=== PATIENT | male | born 1975 | race Caucasian/White ===

== ENCOUNTER 2019-09-16 11:46 | Emergency (ER) | payer MEDICAID, OTHER ==
[2019-09-16] MEDS ORDERED: DEXAMETHASONE 10 MG/ML VIAL PO STA (13:39)
[2019-09-16] MEDS ORDERED: KETOROLAC 60 MG/2 ML VIAL IM STA (13:39)
[2019-09-16] MEDS ORDERED: CHERRY SYRUP 10 ML UDC PO ONE (13:39)
--- NOTE | 2019-09-16 13:42 | ED Physician Documentation ---
PD HPI BACK PAIN - Stated complaint Stated Complaint: LOW BACK PX - Chief complaint Chief Complaint: Back Pain - History obtained from History obtained from: Patient, Family - History of Present Illness Timing - onset: How many weeks ago (3) Timing - duration: Weeks (3) Timing - details: Abrupt onset, Still present Location: Lower, Left Quality: Pain, Spasm, Sharp, Similar to prior episodes Associated symptoms: No: Fever, Weakness, Numbness, Incontinent of urine, Unable to urinate, Hematuria, Incontinent of stool Improves with: Rest Worsened by: Movement, Lifting Contributing factors: Lifting, Twisting Similar symptoms before: Diagnosis (back strain) Recently seen: Not recently seen - Additional information Additional information: Previously well 44-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 He has had issues with his lower back and usually is able to get the symptoms to resolve. Review of Systems Constitutional: denies: Fever Eyes: denies: Decreased vision Respiratory: denies: Cough GI: denies: Vomiting : denies: Dysuria, Frequency PD PAST MEDICAL HISTORY - Past Medical History Past Medical History: Yes Cardiovascular: Hypertension Respiratory: None Neuro: None Endocrine/Autoimmune: None : None HEENT: None Psych: None Musculoskeletal: None Derm: None - Past Surgical History Past Surgical History: Yes HEENT: Tonsil/Adenoidectomy - Present Medications Home Medications: Ambulatory Orders Medication Instructions Recorded Confirmed Amoxicillin/Potassium Clav 1 each PO BID #14 tablet 03/17/15 [Augmentin 875-125 Tablet] Hydrocodone/Acetaminophen 1 - 2 each PO Q6H PRN #14 tablet 09/16/19 [Hydrocodon-Acetaminophen 5-325] - Allergies Allergies/Adverse Reactions: Allergies Allergy/AdvReac Type Severity Reaction Status Date / Time No Known Drug Allergies Allergy Verified 09/16/19 12:22 - Social History Does the pt smoke?: Yes Smoking Status: Current every day smoker Does the pt drink ETOH?: No Does the pt have substance abuse?: No - Immunizations Immunizations are current?: Yes - POLST Patient has POLST: No PD ED PE NORMAL - Vitals Vital signs reviewed: Yes (tachy and hypertensive mild) - General General: Alert and oriented X 3, No acute distress, Well developed/nourished - HEENT HEENT: Atraumatic, PERRL, EOMI - Respiratory Respiratory: No respiratory distress - Back Back: No CVA TTP, No spinal TTP, Other (There is tenderness and firmness to the paraspinous muscles off the lower lumbar spine more on the left side. The pain extends into the sciatic notch on the left side. 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, No motor deficit, No sensory deficit, Normal speech Eye Opening: Spontaneous Motor: Obeys Commands Verbal: Oriented GCS Score: 15 - Psych Psych: Normal mood, Normal affect Results - Vitals Vitals: Vital Signs - 24 hr 09/16/19 12:19 Temperature 36.5 C Heart Rate 117 H Respiratory 22 Rate Blood Pressure 116/83 H O2 Saturation 100 Oxygen O2 Source Room air PD MEDICAL DECISION MAKING - ED course Complexity details: reviewed results, re-evaluated patient, considered differential, d/w patient, d/w family ED course: 44-year-old male with acute sciatica on the left side is administered Dex Methasone 10 mg orally and Toradol 60 mg IM. He does have a primary care doctor for follow-up we will place him on some pain medication muscle relaxant. Departure - Departure Disposition: 01 Home, Self Care Clinical Impression: Sciatica Qualifiers: Laterality: left Qualified Code(s): M54.32 - Sciatica, left side Condition: Stable Instructions: ED Sciatica Follow-Up: Your, doctor [Other] Prescriptions: Hydrocodone/Acetaminophen [Hydrocodon-Acetaminophen 5-325] 1 - 2 each PO Q6H PRN #14 tablet PRN Reason: pain
[2019-09-16 14:02] VITALS: BP 128/74
== END 2019-09-16 14:03 | disposition home or self-care (01) ==
LOC: ED 11:46
DX: M54.42 Lumbago with sciatica, left side (principal); I10 Essential (primary) hypertension; F17.200 Nicotine dependence, unspecified, uncomplicated
CPT/HCPCS: 96372; 99283; 99284; A9270

== ENCOUNTER 2021-07-20 12:30 | Outpatient (CLI) | payer OTHER ==
--- NOTE | 2021-07-20 15:17 | XRAY Report ---
PROCEDURE: Chest 2 View X-Ray INDICATIONS: VIRAL SYNDROME TECHNIQUE: 2 view(s) of the chest. COMPARISON: None. FINDINGS: Surgical changes and devices: None. Lungs and pleura: No pleural effusions or pneumothorax. Increased bronchovascular markings in bilate ral hilar region are seen with mild bronchial wall thickening. No focal infiltrate. There is mild hyp erinflation. Mediastinum: Mediastinal contours are normal. Heart size is normal. Bones and chest wall: No suspicious bony abnormalities. Soft tissues appear unremarkable. IMPRESSION: Finding is suggestive of reactive airway disease such as bronchitis or viral illness. No focal infiltrate, pleural effusion or pneumothorax. Mild hyperinflation. Reviewed by: Pancho Ricci MD on 07/20/2021 3:16 PM PDT Approved by: Pancho iRcci MD on 07/20/2021 3:16 PM PDT Station ID: [id number]
== END 2021-07-20 23:59 | disposition home or self-care (01) ==
LOC: DI.N 12:30
PROVIDERS: ATTEND Nurse Practitioner
DX: B34.9 Viral infection, unspecified (principal); R91.8 Other nonspecific abnormal finding of lung field; U07.1 COVID-19

== ENCOUNTER 2021-07-25 20:55 | Inpatient (IN) | payer OTHER ==
[2021-07-25] MEDS ORDERED: SODIUM CHLORIDE 0.9% 500 ML IV STA (21:25)
[2021-07-25] MEDS ORDERED: ACETAMINOPHEN 325 MG TABLET PO STA (21:32)
--- NOTE | 2021-07-25 21:32 | ED Physician Documentation ---
History of Present Illness - Stated complaint Stated Complaint: C+,CHEST PX,SOA,N/V - Chief complaint Chief Complaint: Resp - History obtained from History obtained from: Patient - Additonal information Additional information: 46-year-old man with history of high blood pressure and obesity, unvaccinated against COVID-19, presents after being seen at walk-in clinic for cough and shortness of breath on Monday, diagnosed with COVID-19 at that time. He has had worsening symptoms since then and is developing worsening nonproductive cough, chest pain worse with cough, substernal, nonradiating, aching, without any hemoptysis or leg swelling. Also with subjective shortness of breath that has been progressively worsening, constant, worse with exertion. +fevers/chills. denies n/v/abd pain diarrhea. Review of Systems Ten Systems: 10 systems reviewed and negative Constitutional: reports: Fever, Chills, Myalgias, Fatigue Cardiac: reports: Chest pain / pressure Respiratory: reports: Dyspnea, Cough PD PAST MEDICAL HISTORY - Past Medical History Cardiovascular: Hypertension Respiratory: None Neuro: None Endocrine/Autoimmune: None : None HEENT: None Psych: None Musculoskeletal: None Derm: None - Past Surgical History Past Surgical History: Yes HEENT: Tonsil/Adenoidectomy - Present Medications Home Medications: Ambulatory Orders Medication Instructions Recorded Confirmed Losartan [Cozaar] 50 mg PO DAILY 07/25/21 07/25/21 - Allergies Allergies/Adverse Reactions: Allergies Allergy/AdvReac Type Severity Reaction Status Date / Time No Known Drug Allergies Allergy Verified 07/25/21 21:32 - Social History Does the pt smoke?: Yes Smoking Status: Current every day smoker Does the pt drink ETOH?: No Does the pt have substance abuse?: No - Immunizations Immunizations are current?: Yes - POLST Patient has POLST: No PD ED PE NORMAL - Vitals Vital signs reviewed: Yes - General General: Alert and oriented X 3, Other (uncomfortable appearing. active dry cough. large body habitus) - HEENT HEENT: Atraumatic, PERRL, EOMI - Neck Neck: Supple, no meningeal sign - Cardiac Cardiac: Other (Borderline tachycardic rate, regular rhythm) - Respiratory Respiratory: Other (Bilateral coarse breath sounds, dependent rhonchi) - Abdomen Abdomen: Non tender, Non distended - Derm Derm: Other (flushed and dry) - Extremities Extremities: No deformity - Neuro Neuro: Alert and oriented X 3 - Psych Psych: Normal mood, Normal affect Results - Vitals Vitals: Vital Signs - 24 hr 07/25/21 07/25/21 21:00 22:37 Temperature 38.6 C H Heart Rate 111 H 105 H Respiratory 12 19 Rate Blood Pressure 137/67 H 136/73 H O2 Saturation 89 L 91 L Oxygen O2 Source Nasal cannula Oxygen Flow Rate 2 - EKG (time done) 2109 Rate: Rate (enter#) (111) Rhythm: Sinus tachycardia [place]: Normal Intervals: Normal UT QRS: Normal Ischemia: Other (no JANINA) - Labs Labs: Laboratory Tests 07/25/21 07/25/21 07/25/21 21:17 21:17 21:17 WBC 4.2 L RBC 4.90 Hgb 15.8 Hct 46.8 MCV 95.5 H MCH 32.2 H MCHC 33.8 RDW 13.3 Plt Count 191 MPV 9.6 Neut # (Auto) 3.2 Lymph # (Auto) 0.8 L Culberson # (Auto) 0.2 Eos # (Auto) 0.0 Baso # (Auto) 0.0 Absolute Nucleated RBC 0.00 Nucleated RBC % 0.0 ESR D-Dimer 814.6 H VBG pH VBG pCO2 VBG pO2 VBG HCO3 VBG Total CO2 VBG O2 Saturation VBG Base Excess Sodium 135 Potassium 4.1 Chloride 99 L Carbon Dioxide 26 Anion Gap 10.0 BUN 15 Creatinine 0.8 Estimated GFR (MDRD) 104 Glucose 126 H Calcium 8.6 Total Bilirubin 0.5 AST 57 H ALT 49 Alkaline Phosphatase 47 Troponin I High Sens C-React Prot High Sens 109.2 Total Protein 7.1 Albumin 3.9 Globulin 3.2 Albumin/Globulin Ratio 1.2 Lipase 30 Nasal Adenovirus (PCR) Nasal B. parapertussis DNA (PCR) Nasal Coronavir 229E PCR Nasal Coronavir HKU1 PCR Nasal Coronavir NL63 PCR Nasal Coronavir OC43 PCR Nasal Enterovir/Rhinovir PCR Nasal Influenza B PCR Nasal Influenza A PCR Nasal Parainfluen 1 PCR Nasal Parainfluen 2 PCR Nasal Parainfluen 3 PCR Nasal Parainfluen 4 PCR Nasal RSV (PCR) Nasal B.pertussis DNA PCR Nasal C.pneumoniae (PCR) Eimle Human Metapneumo PCR Nasal M.pneumoniae (PCR) Nasal SARS-CoV-2 (PCR) 07/25/21 07/25/21 07/25/21 21:17 21:17 21:17 WBC RBC Hgb Hct MCV MCH MCHC RDW Plt Count MPV Neut # (Auto) Lymph # (Auto) Culberson # (Auto) Eos # (Auto) Baso # (Auto) Absolute Nucleated RBC Nucleated RBC % ESR 18 H D-Dimer VBG pH 7.423 H VBG pCO2 37.3 L VBG pO2 40.8 VBG HCO3 23.8 VBG Total CO2 25.0 VBG O2 Saturation 77.9 VBG Base Excess -0.2 Sodium Potassium Chloride Carbon Dioxide Anion Gap BUN Creatinine Estimated GFR (MDRD) Glucose Calcium Total Bilirubin AST ALT Alkaline Phosphatase Troponin I High Sens 6.2 C-React Prot High Sens Total Protein Albumin Globulin Albumin/Globulin Ratio Lipase Nasal Adenovirus (PCR) Nasal B. parapertussis DNA (PCR) Nasal Coronavir 229E PCR Nasal Coronavir HKU1 PCR Nasal Coronavir NL63 PCR Nasal Coronavir OC43 PCR Nasal Enterovir/Rhinovir PCR Nasal Influenza B PCR Nasal Influenza A PCR Nasal Parainfluen 1 PCR Nasal Parainfluen 2 PCR Nasal Parainfluen 3 PCR Nasal Parainfluen 4 PCR Nasal RSV (PCR) Nasal B.pertussis DNA PCR Nasal C.pneumoniae (PCR) Emile Human Metapneumo PCR Nasal M.pneumoniae (PCR) Nasal SARS-CoV-2 (PCR) 07/25/21 21:17 WBC RBC Hgb Hct MCV MCH MCHC RDW Plt Count MPV Neut # (Auto) Lymph # (Auto) Culbers[place] # (Auto) Eos # (Auto) Baso # (Auto) Absolute Nucleated RBC Nucleated RBC % ESR D-Dimer VBG pH VBG pCO2 VBG pO2 VBG HCO3 VBG Total CO2 VBG O2 Saturation VBG Base Excess Sodium Potassium Chloride Carbon Dioxide Anion Gap BUN Creatinine Estimated GFR (MDRD) Glucose Calcium Total Bilirubin AST ALT Alkaline Phosphatase Troponin I High Sens C-React Prot High Sens Total Protein Albumin Globulin Albumin/Globulin Ratio Lipase Nasal Adenovirus (PCR) NOT DETECTED Nasal B. parapertussis DNA (PCR) NOT DETECTED Nasal Coronavir 229E PCR NOT DETECTED Nasal Coronavir HKU1 PCR NOT DETECTED Nasal Coronavir NL63 PCR NOT DETECTED Nasal Coronavir OC43 PCR NOT DETECTED Nasal Enterovir/Rhinovir PCR NOT DETECTED Nasal Influenza B PCR NOT DETECTED Nasal Influenza A PCR NOT DETECTED Nasal Parainfluen 1 PCR NOT DETECTED Nasal Parainfluen 2 PCR NOT DETECTED Nasal Parainfluen 3 PCR NOT DETECTED Nasal Parainfluen 4 PCR NOT DETECTED Nasal RSV (PCR) NOT DETECTED Nasal B.pertussis DNA PCR NOT DETECTED Nasal C.pneumoniae (PCR) NOT DETECTED Emile Human Metapneumo PCR NOT DETECTED Nasal M.pneumoniae (PCR) NOT DETECTED Nasal SARS-CoV-2 (PCR) DETECTED A PD MEDICAL DECISION MAKING - ED course ED course: 46yM presents with moderate to severe COVID-19 symptoms, improving with O2 administration. EKG nonischemic. Will plan to admit pending labs, xr. Patient feeling better on 5L NC o2. d/w Dr. Brannon for admission. patient will receive full therapeutic dose lovenox and 7mg decadron per recent studies. Departure - Departure Disposition: 66 [facility] DC/Xfer Clinical Impression: COVID-19, Hypoxia, Shortness of breath Condition: Stable
[2021-07-25 21:33] LABS: VBG PCO2 37.3 mmHg (41-51); VBG PH 7.423 (7.31-7.41); VBG PO2 40.8 mmHg (25-47)
[2021-07-25 21:34] LABS: BASOPHILS % (AUTO) 0.2 %; HCT - HEMATOCRIT 46.8 % (42.0-52.0); HGB - HEMOGLOBIN 15.8 g/dL (14.0-18.0); LYMPHOCYTES # (AUTO) 0.8 10^3/uL (1.5-3.5); LYMPHOCYTES % (AUTO) 19.4 %; MEAN CORPUSCULAR HEMOGLOBIN 32.2 pg (27.0-31.0); MEAN CORPUSCULAR HGB CONC 33.8 g/dL (32.0-36.0); MEAN CORPUSCULAR VOLUME 95.5 fL (80.0-94.0); MEAN PLATELET VOLUME 9.6 fL (7.4-11.4); MONOCYTES # (AUTO) 0.2 10^3/uL (0.0-1.0); MONOCYTES % (AUTO) 5.2 %; NEUTROPHILS # (AUTO) 3.2 10^3/uL (1.5-6.6); NEUTROPHILS % (AUTO) 74.7 %; PLT - PLATELET COUNT 191 10^3/uL (130-450); RED CELL DISTRIBUTION WIDTH 13.3 % (12.0-15.0); VBG BASE EXCESS -0.2 mmol/L (-2 - +2); VBG HCO3 23.8 mmol/L (23-28); VBG OXYGEN SATURATION 77.9 % (60-80); WHITE BLOOD COUNT 4.2 x10^3/uL (4.8-10.8)
[2021-07-25 21:45] LABS: ALBUMIN 3.9 g/dL (3.2-5.5); ALBUMIN/GLOBULIN RATIO 1.2 (1.0-2.2); BILIRUBIN,TOTAL 0.5 mg/dL (0.2-1.0); CALCIUM 8.6 mg/dL (8.5-10.3); CREATININE 0.8 mg/dL (0.6-1.2); CRP HIGH SENSITIVITY 109.2 mg/L; POTASSIUM 4.1 mmol/L (3.5-5.0); TOTAL PROTEIN 7.1 g/dL (6.7-8.2)
--- NOTE | 2021-07-25 22:19 | XRAY Report ---
PROCEDURE: Chest 1 View X-Ray INDICATIONS: Chest Pain TECHNIQUE: One view of the chest was acquired. COMPARISON: 07/20/2021 FINDINGS: Surgical changes and devices: None. Lungs and pleura: No pleural effusions or pneumothorax. Extensive airspace opacities are seen scatte red throughout bilateral lung dooley more prominent in right upper lobe and bilateral lower lobes. Mediastinum: Mediastinal contours appear normal. Heart size is normal. Bones and chest wall: No suspicious bony lesions. Overlying soft tissues appear unremarkable. IMPRESSION: Extensive bilateral pulmonary infiltrates concerning for pneumonia from COVID-19 infection. No pleura l effusion or pneumothorax. Reviewed by: Pancho Ricci MD on 07/25/2021 10:17 PM PDT Approved by: Pancho Ricci MD on 07/25/2021 10:17 PM PDT Station ID: [id number]
[2021-07-25] MEDS ORDERED: DEXAMETHASONE 10 MG/ML VIAL IVP STA (22:31)
[2021-07-25 22:41] LABS: B. PARAPERTUSSIS- RESP PCR PAN NOT DETECTED; B. PERTUSSIS- RESP PCR PANEL NOT DETECTED; C. PNEUMONIAE- RESP PCR PANEL NOT DETECTED; CORONAVIRUS 229E-RESP PCR NOT DETECTED; CORONAVIRUS HKU1-RESP PCR NOT DETECTED; CORONAVIRUS NL63-RESP PCR NOT DETECTED; CORONAVIRUS OC43-RESP PCR NOT DETECTED; HUMAN METAPNEUMOVIRUS NOT DETECTED; INFLUENZA A- RESP PCR PANEL NOT DETECTED; INFLUENZA B - RESP PCR PANEL NOT DETECTED; M. PNEUMONIAE- RESP PCR PANEL NOT DETECTED; PARAINFLUENZA VIRUS 1 NOT DETECTED; PARAINFLUENZA VIRUS 2 NOT DETECTED; PARAINFLUENZA VIRUS 3 NOT DETECTED; PARAINFLUENZA VIRUS 4 NOT DETECTED; RHINOVIRUS/ENTEROVIRUS NOT DETECTED; RSV- RESP PCR PANEL NOT DETECTED; SARS-CoV-2 -RESP PCR PANEL DETECTED
[2021-07-25] MEDS ORDERED: ENOXAPARIN 100 MG/ML SYRINGE SUBQ STA (23:03)
[2021-07-25] MEDS ORDERED: ONDANSETRON 4 MG/2 ML VIAL IVP PRN (23:05)
[2021-07-25] MEDS ORDERED: ONDANSETRON ODT 4 MG TABLET TL PRN (23:05)
[2021-07-25] MEDS ORDERED: oxyCODONE 5 MG TABLET PO PRN (23:05)
--- NOTE | 2021-07-25 23:12 | HISTORY & PHYSICAL EXAMINATION ---
Chief Complaint - Chief Complaint Chief Complaint: SOB in covid patient History of Present Illness - Admitted From Admitted From:: home - History Obtained From Records Reviewed: [facility] History obtained from: Dr. 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 He has just not gotten around to getting vaccinated. He became ill over a week ago while on the road. He was miserable with cough, fever, body aches. He came home ill and was tested in the walk-in clinic July 20 and was positive for COVID-19. He has been at home quarantining. His and two younger kids (twins) are ill with this as well. has only been sick for 3 days and twins became ill today. He has become increasingly more short of breath, coughing non stop and can't get his breath. Has no appetite. Denies chest pain, pleuritic pain, abd pain, diarrhea, hemoptysis. No phlegm production. Came to the emergency room and his temperature is 38.6. Heart rate is 111. He is 89% on room air. Initially was requiring 2 L to maintain O2 sat and is now up to 5 L to maintain O2 sat at 91%. Blood pressure is stable in the 130s over 70s. He has an active dry cough, appears fatigued, has bilateral coarse breath sounds with dependent rhonchi. Tachycardic regular rate and rhythm. His skin is flushed. Chest x-ray shows bilateral pneumonia compatible with Covid. Random glucose is 126. Troponin is 6.2. He is leukopenic with a white cell count of 4.2. Hemoglobin 15.8. Sed rate is 18. D-dimer is 814. Repeat nasal swab today is SARS Covid positive. He is now admitted for Covid pneumonia with hypoxemia. History - Past Medical History Cardiovascular: reports: Hypertension Respiratory: reports: None Neuro: reports: None Endocrine/Autoimmune: reports: None GI: reports: None : reports: None HEENT: reports: None Psych: reports: None Musculoskeletal: reports: Other (sciatica) Derm: reports: None MRSA Hx?: No - Past Surgical History HEENT: reports: Tonsil/Adenoidectomy - Family & Social History Family History Comment/Other: Mom in her mid 50s of lung cancer. She was not a smoker but worked at a casino for 35 years. Dad a while back, cannot remember his age, and of alcohol poisoning. 3 sisters are healthy except one has high blood pressure. His 4 children are healthy. He has 2 older children no longer live at home, 2 younger children still live at home. Living arrangement: At home Living Situation: With spouse/s.o., With family Social History Notes: He is born in [place]. 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 He has been smoking 1 pack/day since the age of 18. He drinks rarely. No history of recreational substance abuse. - Substance History Abuse: Recurrent use of substance despite neg consequences: Inhalant (Tobacco) - POLST Patient has POLST: No POLST Status: Full Code Meds/Allgy - Home Medications Home Medications: Ambulatory Orders Medication Instructions Recorded Confirmed Losartan [Cozaar] 50 mg PO DAILY 07/25/21 07/25/21 - Allergies Allergies/Adverse Reactions: Allergies Allergy/AdvReac Type Severity Reaction Status Date / Time No Known Drug Allergies Allergy Verified 07/25/21 21:32 Review of Systems - Constitutional Constitutional: reports: Fatigue, Fever, Chills, Malaise, Poor appetite, Diaphoresis - Eyes Eyes: denies: Pain, Irritation, Amaurosis, Blurred vision - Ears, Nose & Throat Ears, Nose & Throat: reports: Nasal obstruction, Nasal congestion. denies: Ear pain, Hearing loss, Hearing aids - Cardiovascular Cariovascular: reports: Exertional dyspnea, Decr. exercise tolerance. denies: Irregular heart rate, Palpitations, Chest pain, Edema, Lightheadedness, Syncope - Respiratory Respiratory: reports: Cough, Wheezing, SOB at rest, SOB with exertion. denies: Sputum production, Snoring, Hemoptysis, Orthopnea, Apnea, Pleuritic pain - Gastrointestinal Gastrointestinal: denies: Abdominal pain, Abdominal distention, Constipation, Diarrhea, Change in bowel habits, Black stools, Bloody stools, Albert blood emesis - Genitourinary Genitourinary: denies: Dysuria, Frequency, Urgency, Hematuria - Musculoskeletal Musculoskeletal: reports: Back pain, Muscle aches, Stiffness. denies: Gout, Joint pain - Neurological Neurological: reports: General weakness, Headache. denies: Focal weakness, Dizziness, Numbness, Memory problems, Pre-existing deficit, Abnormal gait - Psychiatric Psychiatric: denies: Depression, Anxiety, Suicidal, Delusions, Hallucinations - Endocrine Endocrine: denies: Polyuria, Polydypsia, Polyphagia - Hematologic/Lymphatic Hematologic/Lymphatic: denies: Anemia, Bruising, Petechiae, Blood clots Prior Level of Functionality: When he is not ill, he is completely independent with activities of daily living. 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 Does not use any durable medical equipment. Exam - Vital Signs Reviewed Vital Signs: Yes Vital Signs: Vital Signs x48h Temp Pulse Resp BP Pulse Ox 07/25/21 22:37 105 H 19 136/73 H 91 L 07/25/21 21:00 38.6 C H 111 H 12 137/67 H 89 L - Physical Exam General Appearance: positive: Alert, Mild distress, Other (6 foot tall, 159.5 kg, mild tachypnea at rest that increases when he tries to talk to me. During his exam no cough.) Eyes Bilateral: positive: PERRL, EOMI ENT: positive: No signs of dehydration Neck: positive: No JVD, Lymphadenopathy (R), Lymphadenopathy (L). negative: Stiff neck Respiratory: positive: No respiratory distress (Mild tachypnea.), Rales, Rhonchi Cardiovascular: positive: Regular rate & rhythm, No murmur, Tachycardia. negative: Gallop/S4, Friction rub Peripheral Pulses: positive: 1+ Abdomen: positive: Non-tender, No organomegaly, Nml bowel sounds, No distention, Other (Large abdominal pannus in this morbidly obese man) Back: positive: Nml inspection. negative: CVA tenderness (R), CVA tenderness (L) Skin: positive: Color nml, Warm, Dry, Other (The distal part of his hall is red, rough, sandpapery. Nontender. No infection or oozing. He does not know how this 3 x 7 cm area occurred.) Extremities: positive: Non-tender, Full ROM, No pedal edema, Other (Large muscular calves. No venous stasis changes.) Neurologic/Psychiatric: positive: Oriented x3, CN's nml (2-12), Motor nml, Sensation nml Conclusion/Plan - Problem List (1) COVID-19 Conclusion/Plan: With hypoxemia, leukopenia, and viral pneumonia on chest x-ray. Has been ill for close to 2 weeks now. Plan: Inpatient status Decadron 6 mg IV push daily for 10 days Remdesivir for 5 days with first dose tomorrow Daily labs to include CBC, BMP, LDH, D-dimer Lovenox subcu for DVT prophylaxis but will receive full therapeutic dosing Full code (2) Hypoxia Conclusion/Plan: Due to viral pneumonia. Patient is a full code. Currently on nasal cannula and responding with stable O2 sats. (3) Hypertension Conclusion/Plan: With current good control of blood pressure. Will resume losartan in the inpatient setting Qualifiers: Hypertension type: primary hypertension Qualified Code(s): I10 - Essential (primary) hypertension (4) Tobacco abuse Conclusion/Plan: He thinks that this is the last time he is going to smoke. He just does not have a taste for it anymore. I have encouraged him to stay with that idea and not smoke upon leaving the hospital. At this time he declines getting a nicotine patch. - Lab Results Lab results reviewed: Yes Fish Bones: 07/25/21 21:17 07/25/21 21:17 - Diagnostic Imaging Results Diagnostic Imaging Results: positive: Final report reviewed Diagnostic Imaging Results Comments: Today's chest x-ray is compared to July 20, 2021. Extensive airspace opacities are seen scattered throughout bilateral lung dooley more prominent in the right upper lobe and bilateral lower lobes. - EKG Results EKG Interpreted Independently: No Core Measures - Anticipated LOS I expect patient to be DC'd or transferred within 96 hours.: Yes - DVT/VTE - Prophylaxis VTE/DVT Device ordered at admit?: Yes
[2021-07-26] MEDS: guaiFENesin/CODEINE 5 ML UDC PO PRN ×4 (00:58→21:59)
[2021-07-26] MEDS: BENZONATATE 100 MG CAPSULE PO PRN ×3 (00:59→21:58)
[2021-07-26] MEDS: SODIUM CHLORIDE FLUSH 0.9% 10 ML SYRINGE IVP SCH ×4 (02:10→21:06)
[2021-07-26] MEDS: ACETAMINOPHEN 325 MG TABLET PO PRN (04:51)
--- NOTE | 2021-07-26 06:45 | PHARMACY PROGRESS NOTE ---
- Best Possible Medication History Admit Date and Time: 07/25/21 7541 Processed by: Nursing Medication History completed: Yes Patient Interview: Completed Secondary Source(s): Pharmacy records, Insurance records As the person ultimately responsible for medication therapy, providers are able to order a medication from an existing home medication list in [facility] via the "Reconcile Routine" prior to Confirmation of that medication by software support technician. Such practice is discouraged except when the physician, in their clinical judgment, deems that a medical need exists for a medication without regard to previous use.
[2021-07-26] MEDS ORDERED: NON FORMULARY MED (Remdesivir 200 MG) IVP SCH (07:00)
[2021-07-26 07:03] LABS: CALCIUM 8.5 mg/dL (8.5-10.3); CREATININE 0.8 mg/dL (0.6-1.2); POTASSIUM 4.5 mmol/L (3.5-5.0)
--- NOTE | 2021-07-26 07:40 | PROVIDER PROGRESS NOTE ---
Subjective - Prog Note Date Prog Note Date: 07/26/21 - Subjective Subjective: He was transferred to the intensive care unit overnight due to increasing oxygen requirements. He is now requiring high flow nasal cannula. He states that he feels improved compared to yesterday. Does not really feel short of breath at rest but continues to have a cough. He denies any leg pain or leg swelling. Denies a history of DVT. Current Medications - Current Medications Current Medications: Active Medications Acetaminophen (Acetaminophen 325 Mg Tablet) 650 mg PO Q4HR PRN PRN Reason: Pain 1 to 4 Last Admin: 07/26/21 04:51 Dose: 650 mg Documented by: Benzonatate (Benzonatate 100 Mg Capsule) 100 mg PO TID PRN PRN Reason: Cough Last Admin: 07/26/21 00:59 Dose: 100 mg Documented by: Chlorhexidine Gluconate (Chlorhexidine Gluconate 15 Ml Udc) 15 ml PO BID [facility] Dexamethasone (Dexamethasone 4 Mg/Ml Vial) 6 mg IVP DAILY [facility] Enoxaparin Sodium (Enoxaparin 150 Mg/Ml Syringe) 150 mg SUBQ BID [facility] Guaifenesin/Codeine Phosphate (Guaifenesin/Codeine 5 Ml Udc) 5 ml PO Q6HR PRN PRN Reason: Cough Last Admin: 07/26/21 00:58 Dose: 5 ml Documented by: Remdesivir 200 mg/ Sodium (Chloride) 250 mls @ 250 mls/hr IV ONCE ONE Stop: 07/26/21 09:59 Remdesivir 100 mg/ Sodium (Chloride) 100 mls @ 200 mls/hr IV DAILY [facility] Stop: 07/30/21 09:29 Ondansetron HCl (Ondansetron Odt 4 Mg Tablet) 4 mg TL Q6HR PRN PRN Reason: Nausea / Vomiting Ondansetron HCl (Ondansetron 4 Mg/2 Ml Vial) 4 mg IVP Q6HR PRN PRN Reason: Nausea / Vomiting Oxycodone HCl (Oxycodone 5 Mg Tablet) 5 mg PO Q4HR PRN PRN Reason: Pain 5 to 7 Sodium Chloride (Sodium Chloride Flush 0.9% 10 Ml Syringe) 10 ml IVP PRN PRN PRN Reason: NEEDED PER PROVIDER ORDERS Sodium Chloride (Sodium Chloride Flush 0.9% 10 Ml Syringe) 10 ml IVP 0100,0900,1700 [facility] Last Admin: 07/26/21 02:10 Dose: Not Given Documented by: Losartan [Cozaar] 50 mg PO DAILY 07/25/21 Objective - Vital Signs/Intake & Output Reviewed Vital Signs: Yes Vital Signs: Vital Signs Temp Pulse Resp BP Pulse Ox 07/26/21 07:00 100 30 H 124/83 H 92 07/26/21 06:30 37.6 C 88 L 07/26/21 05:55 92 07/26/21 05:05 90 L 07/26/21 04:54 24 90 L 07/26/21 04:46 38.5 C H 07/26/21 04:20 105 H 24 92 07/26/21 04:15 5 L Intake & Output: Intake & Output 07/23/21 07/24/21 07/25/21 07/26/21 23:59 23:59 23:59 23:59 Intake Total 500 400 Balance 500 400 - Objective General Appearance: positive: No acute distress, Alert Eyes Bilateral: positive: Normal inspection, Conjunctivae nml ENT: positive: ENT inspection nml Neck: positive: Nml inspection Respiratory: positive: No respiratory distress, Rhonchi Cardiovascular: positive: Regular rate & rhythm, No murmur, Tachycardia. negative: Bradycardia, Systolic murmur Abdomen: positive: Non-tender, No distention. negative: Tenderness Extremities: positive: No pedal edema. negative: Pedal edema, Calf tenderness, Trini's sign/cords Neurologic/Psychiatric: positive: Motor nml. negative: Disoriented to person, Disoriented to place, Disoriented to time - Lab Results Fish Bones: 07/26/21 06:45 07/26/21 06:45 Other Labs: Lab Results x24hrs 07/26/21 07/26/21 07/25/21 Range/Units 06:45 06:45 21:17 WBC (4.8-10.8) x10^3/uL RBC (4.70-6.10) 10^6/uL Hgb (14.0-18.0) g/dL Hct (42.0-52.0) % MCV (80.0-94.0) fL MCH (27.0-31.0) pg MCHC (32.0-36.0) g/dL RDW (12.0-15.0) % Plt Count (130-450) 10^3/uL MPV (7.4-11.4) fL Neut # (Auto) (1.5-6.6) 10^3/uL Lymph # (Auto) (1.5-3.5) 10^3/uL [place] # (Auto) (0.0-1.0) 10^3/uL Eos # (Auto) (0.0-0.7) 10^3/uL Baso # (Auto) (0.0-0.1) 10^3/uL Absolute Nucleated RBC x10^3/uL Nucleated RBC % /100WBC ESR (0-15) mm/Hr D-Dimer (200.0-255.0) ng/mL VBG pH (7.31-7.41) VBG pCO2 (41-51) mmHg VBG pO2 (25-47) mmHg VBG HCO3 (23-28) mmol/L VBG Total CO2 (24-29) mmol/L VBG O2 Saturation (60-80) % VBG Base Excess (-2 - +2) mmol/L Sodium 135 (135-145) mmol/L Potassium 4.5 (3.5-5.0) mmol/L Chloride 100 L (101-111) mmol/L Carbon Dioxide 24 (21-32) mmol/L Anion Gap 11.0 (6-13) BUN 14 (6-20) mg/dL Creatinine 0.8 (0.6-1.2) mg/dL Estimated GFR (MDRD) 104 (>89) Glucose 153 H (70-100) mg/dL Calcium 8.5 (8.5-10.3) mg/dL Total Bilirubin (0.2-1.0) mg/dL AST (10-42) IU/L ALT (10-60) IU/L Alkaline Phosphatase (42-121) IU/L Lactate Dehydrogenase 496 H (91-225) IU/L Troponin I High Sens (2.3-19.7) ng/L C-React Prot High Sens mg/L Total Protein (6.7-8.2) g/dL Albumin (3.2-5.5) g/dL Globulin (2.1-4.2) g/dL Albumin/Globulin Ratio (1.0-2.2) Lipase (22-51) U/L Nasal Adenovirus (PCR) NOT DETECTED Nasal B. parapertussis DNA (PCR) NOT DETECTED Nasal Coronavir 229E PCR NOT DETECTED Nasal Coronavir HKU1 PCR NOT DETECTED Nasal Coronavir NL63 PCR NOT DETECTED Nasal Coronavir OC43 PCR NOT DETECTED Nasal Enterovir/Rhinovir PCR NOT DETECTED Nasal Influenza B PCR NOT DETECTED Nasal Influenza A PCR NOT DETECTED Nasal Parainfluen 1 PCR NOT DETECTED Nasal Parainfluen 2 PCR NOT DETECTED Nasal Parainfluen 3 PCR NOT DETECTED Nasal Parainfluen 4 PCR NOT DETECTED Nasal RSV (PCR) NOT DETECTED Nasal B.pertussis DNA PCR NOT DETECTED Nasal C.pneumoniae (PCR) NOT DETECTED Emile Human Metapneumo PCR NOT DETECTED Nasal M.pneumoniae (PCR) NOT DETECTED Nasal SARS-CoV-2 (PCR) DETECTED A 07/25/21 07/25/21 07/25/21 Range/Units 21:17 21:17 21:17 WBC (4.8-10.8) x10^3/uL RBC (4.70-6.10) 10^6/uL Hgb (14.0-18.0) g/dL Hct (42.0-52.0) % MCV (80.0-94.0) fL MCH (27.0-31.0) pg MCHC (32.0-36.0) g/dL RDW (12.0-15.0) % Plt Count (130-450) 10^3/uL MPV (7.4-11.4) fL Neut # (Auto) (1.5-6.6) 10^3/uL Lymph # (Auto) (1.5-3.5) 10^3/uL [place] # (Auto) (0.0-1.0) 10^3/uL Eos # (Auto) (0.0-0.7) 10^3/uL Baso # (Auto) (0.0-0.1) 10^3/uL Absolute Nucleated RBC x10^3/uL Nucleated RBC % /100WBC ESR 18 H (0-15) mm/Hr D-Dimer (200.0-255.0) ng/mL VBG pH 7.423 H (7.31-7.41) VBG pCO2 37.3 L (41-51) mmHg VBG pO2 40.8 (25-47) mmHg VBG HCO3 23.8 (23-28) mmol/L VBG Total CO2 25.0 (24-29) mmol/L VBG O2 Saturation 77.9 (60-80) % VBG Base Excess -0.2 (-2 - +2) mmol/L Sodium (135-145) mmol/L Potassium (3.5-5.0) mmol/L Chloride (101-111) mmol/L Carbon Dioxide (21-32) mmol/L Anion Gap (6-13) BUN (6-20) mg/dL Creatinine (0.6-1.2) mg/dL Estimated GFR (MDRD) (>89) Glucose (70-100) mg/dL Calcium (8.5-10.3) mg/dL Total Bilirubin (0.2-1.0) mg/dL AST (10-42) IU/L ALT (10-60) IU/L Alkaline Phosphatase (42-121) IU/L Lactate Dehydrogenase (91-225) IU/L Troponin I High Sens 6.2 (2.3-19.7) ng/L C-React Prot High Sens mg/L Total Protein (6.7-8.2) g/dL Albumin (3.2-5.5) g/dL Globulin (2.1-4.2) g/dL Albumin/Globulin Ratio (1.0-2.2) Lipase (22-51) U/L Nasal Adenovirus (PCR) Nasal B. parapertussis DNA (PCR) Nasal Coronavir 229E PCR Nasal Coronavir HKU1 PCR Nasal Coronavir NL63 PCR Nasal Coronavir OC43 PCR Nasal Enterovir/Rhinovir PCR Nasal Influenza B PCR Nasal Influenza A PCR Nasal Parainfluen 1 PCR Nasal Parainfluen 2 PCR Nasal Parainfluen 3 PCR Nasal Parainfluen 4 PCR Nasal RSV (PCR) Nasal B.pertussis DNA PCR Nasal C.pneumoniae (PCR) Emile Human Metapneumo PCR Nasal M.pneumoniae (PCR) Nasal SARS-CoV-2 (PCR) 07/25/21 07/25/21 07/25/21 Range/Units 21:17 21:17 21:17 WBC 4.2 L (4.8-10.8) x10^3/uL RBC 4.90 (4.70-6.10) 10^6/uL Hgb 15.8 (14.0-18.0) g/dL Hct 46.8 (42.0-52.0) % MCV 95.5 H (80.0-94.0) fL MCH 32.2 H (27.0-31.0) pg MCHC 33.8 (32.0-36.0) g/dL RDW 13.3 (12.0-15.0) % Plt Count 191 (130-450) 10^3/uL MPV 9.6 (7.4-11.4) fL Neut # (Auto) 3.2 (1.5-6.6) 10^3/uL Lymph # (Auto) 0.8 L (1.5-3.5) 10^3/uL [place] # (Auto) 0.2 (0.0-1.0) 10^3/uL Eos # (Auto) 0.0 (0.0-0.7) 10^3/uL Baso # (Auto) 0.0 (0.0-0.1) 10^3/uL Absolute Nucleated RBC 0.00 x10^3/uL Nucleated RBC % 0.0 /100WBC ESR (0-15) mm/Hr D-Dimer 814.6 H (200.0-255.0) ng/mL VBG pH (7.31-7.41) VBG pCO2 (41-51) mmHg VBG pO2 (25-47) mmHg VBG HCO3 (23-28) mmol/L VBG Total CO2 (24-29) mmol/L VBG O2 Saturation (60-80) % VBG Base Excess (-2 - +2) mmol/L Sodium 135 (135-145) mmol/L Potassium 4.1 (3.5-5.0) mmol/L Chloride 99 L (101-111) mmol/L Carbon Dioxide 26 (21-32) mmol/L Anion Gap 10.0 (6-13) BUN 15 (6-20) mg/dL Creatinine 0.8 (0.6-1.2) mg/dL Estimated GFR (MDRD) 104 (>89) Glucose 126 H (70-100) mg/dL Calcium 8.6 (8.5-10.3) mg/dL Total Bilirubin 0.5 (0.2-1.0) mg/dL AST 57 H (10-42) IU/L ALT 49 (10-60) IU/L Alkaline Phosphatase 47 (42-121) IU/L Lactate Dehydrogenase (91-225) IU/L Troponin I High Sens (2.3-19.7) ng/L C-React Prot High Sens 109.2 mg/L Total Protein 7.1 (6.7-8.2) g/dL Albumin 3.9 (3.2-5.5) g/dL Globulin 3.2 (2.1-4.2) g/dL Albumin/Globulin Ratio 1.2 (1.0-2.2) Lipase 30 (22-51) U/L Nasal Adenovirus (PCR) Nasal B. parapertussis DNA (PCR) Nasal Coronavir 229E PCR Nasal Coronavir HKU1 PCR Nasal Coronavir NL63 PCR Nasal Coronavir OC43 PCR Nasal Enterovir/Rhinovir PCR Nasal Influenza B PCR Nasal Influenza A PCR Nasal Parainfluen 1 PCR Nasal Parainfluen 2 PCR Nasal Parainfluen 3 PCR Nasal Parainfluen 4 PCR Nasal RSV (PCR) Nasal B.pertussis DNA PCR Nasal C.pneumoniae (PCR) Emile Human Metapneumo PCR Nasal M.pneumoniae (PCR) Nasal SARS-CoV-2 (PCR) Assessment/Plan - Problem List (1) Acute respiratory failure with hypoxia Impression: This is secondary to COVID-19 pneumonia. His oxygen requirements have increased throughout the night and now he is saturating in the high 80s on 9 L via Oxymizer. His D-dimer was noted to be elevated at greater than 800. At this time, we will keep him on Decadron 6 mg IV daily as well as remdesivir with today being the first day. 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 If his respiratory status stabilizes and we will try to obtain a CTA of the chest and if there is no evidence of pu lmonary embolism then we can place him on just prophylactic dose of Lovenox. Currently there is no evidence of bacterial infection and so we will hold off on antibiotics. We we will transition to high flow nasal cannula given he had an increase in his oxygen requirements. We discussed intubation again and he obviously prefers to hold off on it but is agreeable if necessary. (2) COVID-19 Impression: This is the cause of his acute respiratory failure with hypoxia. Plan as mentioned above. Continue with contact precautions. (3) Hypertension Impression: He is on losartan at home. Currently he is normotensive and so we will hold the losartan. We will resume when appropriate. Qualifiers: Hypertension type: primary hypertension Qualified Code(s): I10 - Essential (primary) hypertension
[2021-07-26 07:44] LABS: BASOPHILS % (AUTO) 0.2 %; HGB - HEMOGLOBIN 15.1 g/dL (14.0-18.0); LYMPHOCYTES # (AUTO) 0.8 10^3/uL (1.5-3.5); LYMPHOCYTES % (AUTO) 14.1 %; MEAN CORPUSCULAR HEMOGLOBIN 31.8 pg (27.0-31.0); MEAN CORPUSCULAR HGB CONC 33.6 g/dL (32.0-36.0); MEAN CORPUSCULAR VOLUME 94.7 fL (80.0-94.0); MEAN PLATELET VOLUME 10.5 fL (7.4-11.4); MONOCYTES # (AUTO) 0.3 10^3/uL (0.0-1.0); MONOCYTES % (AUTO) 4.6 %; NEUTROPHILS # (AUTO) 4.4 10^3/uL (1.5-6.6); NEUTROPHILS % (AUTO) 80.5 %; PLT - PLATELET COUNT 213 10^3/uL (130-450); RED BLOOD COUNT 4.75 10^6/uL (4.70-6.10); RED CELL DISTRIBUTION WIDTH 13.3 % (12.0-15.0); WHITE BLOOD COUNT 5.4 x10^3/uL (4.8-10.8)
[2021-07-26] MEDS: ENOXAPARIN 150 MG/ML SYRINGE SUBQ SCH ×2 (08:24→21:06)
[2021-07-26] MEDS: CHLORHEXIDINE GLUCONATE 15 ML UDC PO SCH ×2 (08:24→21:06)
[2021-07-26] MEDS: DEXAMETHASONE 4 MG/ML VIAL IVP SCH (08:24)
[2021-07-26] MEDS ORDERED: LOSARTAN 50 MG TABLET PO SCH (09:00)
[2021-07-26] MEDS ORDERED: REMDESIVIR 100MG VIAL 200 MG in SODIUM CHLORIDE 0.9% 250 ML IV ONE (09:00)
[2021-07-26] MEDS: LOSARTAN 50 MG TABLET PO SCH (12:04)
[2021-07-27 05:28] LABS: BASOPHILS % (AUTO) 0.1 %; HCT - HEMATOCRIT 45.8 % (42.0-52.0); HGB - HEMOGLOBIN 15.5 g/dL (14.0-18.0); LYMPHOCYTES # (AUTO) 1.5 10^3/uL (1.5-3.5); LYMPHOCYTES % (AUTO) 15.1 %; MEAN CORPUSCULAR HEMOGLOBIN 32.2 pg (27.0-31.0); MEAN CORPUSCULAR HGB CONC 33.8 g/dL (32.0-36.0); MONOCYTES # (AUTO) 0.9 10^3/uL (0.0-1.0); MONOCYTES % (AUTO) 8.8 %; NEUTROPHILS # (AUTO) 7.3 10^3/uL (1.5-6.6); NEUTROPHILS % (AUTO) 75.5 %; PLT - PLATELET COUNT 280 10^3/uL (130-450); RED BLOOD COUNT 4.82 10^6/uL (4.70-6.10); RED CELL DISTRIBUTION WIDTH 13.6 % (12.0-15.0); WHITE BLOOD COUNT 9.6 x10^3/uL (4.8-10.8)
[2021-07-27 05:33] LABS: CALCIUM 8.6 mg/dL (8.5-10.3); CREATININE 0.7 mg/dL (0.6-1.2); POTASSIUM 4.4 mmol/L (3.5-5.0)
[2021-07-27] MEDS: guaiFENesin/CODEINE 5 ML UDC PO PRN ×3 (05:50→21:19)
[2021-07-27] MEDS: ACETAMINOPHEN 325 MG TABLET PO PRN ×2 (09:13→21:18)
[2021-07-27] MEDS: BENZONATATE 100 MG CAPSULE PO PRN ×2 (09:14→21:20)
[2021-07-27] MEDS: CHLORHEXIDINE GLUCONATE 15 ML UDC PO SCH ×2 (09:15→21:20)
[2021-07-27] MEDS: LOSARTAN 50 MG TABLET PO SCH (09:15)
[2021-07-27] MEDS: DEXAMETHASONE 4 MG/ML VIAL IVP SCH (09:24)
[2021-07-27] MEDS: SODIUM CHLORIDE FLUSH 0.9% 10 ML SYRINGE IVP SCH ×3 (09:25→21:18)
[2021-07-27] MEDS: REMDESIVIR 100MG VIAL 100 MG in SODIUM CHLORIDE 0.9% 100ML 100 ML IV SCH (09:25)
[2021-07-27] MEDS: ENOXAPARIN 150 MG/ML SYRINGE SUBQ SCH ×2 (09:44→21:19)
--- NOTE | 2021-07-27 12:24 | PROVIDER PROGRESS NOTE ---
Assessment/Plan - Problem List (1) Acute respiratory failure with hypoxia Assessment/Plan: This is secondary to COVID-19 pneumonia. His oxygen requirementare high and now he is saturating adequately on High flow oxygen. His D-dimer was noted to be elevated at greater than 800. He is on Decadron 6 mg IV daily and Remdesivir. 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 If his respiratory status stabilizes and we will try to obtain a CTA of the chest and if there is no evidence of pulmonary embolism then we can place him on just prophylactic dose of Lovenox. Currently there is no evidence of bacterial infection and if he does not worsen from a pulmonary standpoint, we will hold off on empiric antibiotics. Continue supplemental high flow nasal cannula oxygen, with target sats 89% or higher. Regarding intubation, he prefers to hold off on it but is agreeable if necessary. (2) COVID-19 Assessment/Plan: This is the cause of his acute respiratory failure with hypoxia. Continue Remdesivir, iv Decadron, Mucinex, Robitussin, supplemental O2. Remain in ICU, given high O2 supplement needs Continue with contact precautions. (3) Hypertension Qualifiers: Hypertension type: primary hypertension Qualified Code(s): I10 - Essential (primary) hypertension Assessment/Plan: He is on losartan at home. Currently he is normotensive and so we will hold the losartan. We will resume when appropriate. (4) Morbid obesity with BMI of 45.0-49.9, adult Assessment/Plan: As per Hx, which gives him higher chance of obesity-hypoventilation syndrome. - Current Meds Current Meds: Current Medications Generic Name Dose Route Start Last Admin Trade Name Freq PRN Reason Stop Dose Admin Acetaminophen 650 mg 07/25/21 23:05 07/27/21 09:13 Acetaminophen 325 Mg Tablet PO 650 mg Q4HR PRN Administration Pain 1 to 4 Benzonatate 100 mg 07/26/21 00:48 07/27/21 09:14 Benzonatate 100 Mg Capsule PO 100 mg TID PRN Administration Cough Chlorhexidine Gluconate 15 ml 07/26/21 09:00 07/27/21 09:15 Chlorhexidine Gluconate 15 Ml Udc PO 15 ml BID [facility] Administration Dexamethasone 6 mg 07/26/21 09:00 07/27/21 09:24 Dexamethasone 4 Mg/Ml Vial IVP 6 mg DAILY [facility] Administration Enoxaparin Sodium 150 mg 07/26/21 09:00 07/27/21 09:44 Enoxaparin 150 Mg/Ml Syringe SUBQ 150 mg BID [facility] Administration Guaifenesin/Codeine Phosphate 5 ml 07/26/21 00:48 07/27/21 09:15 Guaifenesin/Codeine 5 Ml Udc PO 5 ml Q6HR PRN Administration Cough Remdesivir 100 mg/ Sodium 100 mls @ 200 mls/hr 07/27/21 09:00 07/27/21 10:11 Chloride IV 07/30/21 09:29 Infused DAILY [facility] Infusion Losartan Potassium 50 mg 07/26/21 11:00 07/27/21 09:15 Losartan 50 Mg Tablet PO 50 mg DAILY [facility] Administration Sodium Chloride 10 ml 07/26/21 01:00 07/27/21 09:25 Sodium Chloride Flush 0.9% 10 Ml Syringe IVP 10 ml 0100,0900,1700 [facility] Administration - Lab Result Fish Bone Diagrams: 07/27/21 04:48 07/28/21 04:16 Subjective - Subjective Patient Reports: Feeling Better, Resting Comfortably, Other (Describes that his cough is stronger and his phlegm is lossening up, and he can expectorate a little.) Nursing Reports: Shortness of Breath Objective Vital Signs: Vital Signs - 24 hr 07/26/21 07/26/21 07/26/21 13:00 14:00 15:00 Temperature Heart Rate [ 102 H 96 99 Brachial] Respiratory 32 H 23 24 Rate Blood Pressure 151/91 H 165/95 H 144/89 H [Right Brachial artery] O2 Saturation 90 L 91 L 90 L 07/26/21 07/26/21 07/26/21 16:00 17:00 18:00 Temperature 36.9 C Heart Rate [ 96 93 96 Brachial] Respiratory 21 26 H 28 H Rate Blood Pressure 152/98 H 157/97 H 152/83 H [Right Brachial artery] O2 Saturation 92 94 95 07/26/21 07/26/21 07/26/21 19:00 20:00 21:00 Temperature Heart Rate [ 93 82 94 Brachial] Respiratory 26 H 27 H 23 Rate Blood Pressure 148/92 H 152/87 H 138/87 H [Right Brachial artery] O2 Saturation 95 92 94 07/26/21 07/26/21 07/27/21 22:00 23:00 00:00 Temperature 37.0 C 36.8 C Heart Rate [ 97 85 87 Brachial] Respiratory 23 25 H 25 H Rate Blood Pressure 152/86 H 142/85 H 128/77 [Right Brachial artery] O2 Saturation 90 L 95 90 L 07/27/21 07/27/21 07/27/21 01:00 02:00 03:00 Temperature Heart Rate [ 84 99 80 Brachial] Respiratory 25 H 30 H 29 H Rate Blood Pressure 156/83 H 138/82 H 139/78 H [Right Brachial artery] O2 Saturation 93 92 94 07/27/21 07/27/21 07/27/21 04:00 05:00 06:00 Temperature 36.7 C Heart Rate [ 78 79 80 Brachial] Respiratory 27 H 25 H 25 H Rate Blood Pressure 130/77 162/92 H 143/86 H [Right Brachial artery] O2 Saturation 93 92 93 07/27/21 07/27/21 07/27/21 07:00 08:00 09:00 Temperature Heart Rate [ 84 85 84 Brachial] Respiratory 25 H 26 H 17 Rate Blood Pressure 151/90 H 140/80 H 137/80 H [Right Brachial artery] O2 Saturation 93 90 L 93 07/27/21 09:42 Temperature 36.5 C Heart Rate [ Brachial] Respiratory Rate Blood Pressure [Right Brachial artery] O2 Saturation Oxygen O2 Source [facility] Oxygen Flow Rate 2 I&O (Last 24 Hrs): Intake and Output Totals x24h 07/25/21 07/26/21 07/27/21 23:59 23:59 23:59 Intake Total 500 2660 1080 Output Total 1500 2150 Balance 500 1160 -1070 General: Alert, Oriented x3 HEENT: Mucous membr. moist/pink, Other (Wearing High flow O2 mask) Neck: Supple Neuro: Alert, Non Focal Cardiovascular: Regular rate, No murmurs Respiratory: Other (Tachypneic at rest when talking, distant breath sounds in all lung dooley (due to morbid obesity)) Abdomen: Normal bowel sounds (Obese weith a pannus), Soft Extremities: No clubbing, No edema - Results Results: Laboratory Results WBC 9.6 x10^3/uL (4.8-10.8) 07/27/21 04:48 RBC 4.82 10^6/uL (4.70-6.10) 07/27/21 04:48 Hgb 15.5 g/dL (14.0-18.0) 07/27/21 04:48 Hct 45.8 % (42.0-52.0) 07/27/21 04:48 MCV 95.0 fL (80.0-94.0) H 07/27/21 04:48 MCH 32.2 pg (27.0-31.0) H 07/27/21 04:48 MCHC 33.8 g/dL (32.0-36.0) 07/27/21 04:48 RDW 13.6 % (12.0-15.0) 07/27/21 04:48 Plt Count 280 10^3/uL (130-450) 07/27/21 04:48 MPV 10.0 fL (7.4-11.4) 07/27/21 04:48 Neut # (Auto) 7.3 10^3/uL (1.5-6.6) H 07/27/21 04:48 Lymph # (Auto) 1.5 10^3/uL (1.5-3.5) 07/27/21 04:48 [place] # (Auto) 0.9 10^3/uL (0.0-1.0) 07/27/21 04:48 Eos # (Auto) 0.0 10^3/uL (0.0-0.7) 07/27/21 04:48 Baso # (Auto) 0.0 10^3/uL (0.0-0.1) 07/27/21 04:48 Absolute Nucleated RBC 0.00 x10^3/uL 07/27/21 04:48 Nucleated RBC % 0.0 /100WBC 07/27/21 04:48 ESR 18 mm/Hr (0-15) H 07/25/21 21:17 D-Dimer 541.1 ng/mL (200.0-255.0) H 07/27/21 04:48 VBG pH 7.423 (7.31-7.41) H 07/25/21 21:17 VBG pCO2 37.3 mmHg (41-51) L 07/25/21 21:17 VBG pO2 40.8 mmHg (25-47) 07/25/21 21:17 VBG HCO3 23.8 mmol/L (23-28) 07/25/21 21:17 VBG Total CO2 25.0 mmol/L (24-29) 07/25/21 21:17 VBG O2 Saturation 77.9 % (60-80) 07/25/21 21:17 VBG Base Excess -0.2 mmol/L (-2 - +2) 07/25/21 21:17 Sodium 137 mmol/L (135-145) 07/27/21 04:48 Potassium 4.4 mmol/L (3.5-5.0) 07/27/21 04:48 Chloride 99 mmol/L (101-111) L 07/27/21 04:48 Carbon Dioxide 26 mmol/L (21-32) 07/27/21 04:48 Anion Gap 12.0 (6-13) 07/27/21 04:48 BUN 19 mg/dL (6-20) 07/27/21 04:48 Creatinine 0.7 mg/dL (0.6-1.2) 07/27/21 04:48 Estimated GFR (MDRD) 121 (>89) 07/27/21 04:48 Glucose 148 mg/dL (70-100) H 07/27/21 04:48 Calcium 8.6 mg/dL (8.5-10.3) 07/27/21 04:48 Total Bilirubin 0.5 mg/dL (0.2-1.0) 07/25/21 21:17 AST 57 IU/L (10-42) H 07/25/21 21:17 ALT 49 IU/L (10-60) 07/25/21 21:17 Alkaline Phosphatase 47 IU/L (42-121) 07/25/21 21:17 Lactate Dehydrogenase 526 IU/L (91-225) H 07/27/21 04:48 Troponin I High Sens 6.2 ng/L (2.3-19.7) 07/25/21 21:17 C-React Prot High Sens 109.2 mg/L 07/25/21 21:17 Total Protein 7.1 g/dL (6.7-8.2) 07/25/21 21:17 Albumin 3.9 g/dL (3.2-5.5) 07/25/21 21:17 Globulin 3.2 g/dL (2.1-4.2) 07/25/21 21:17 Albumin/Globulin Ratio 1.2 (1.0-2.2) 07/25/21 21:17 Lipase 30 U/L (22-51) 07/25/21 21:17 Nasal Adenovirus (PCR) NOT DETECTED 07/25/21 21:17 Nasal B. parapertussis DNA (PCR) NOT DETECTED 07/25/21 21:17 Nasal Coronavir 229E PCR NOT DETECTED 07/25/21 21:17 Nasal Coronavir HKU1 PCR NOT DETECTED 07/25/21 21:17 Nasal Coronavir NL63 PCR NOT DETECTED 07/25/21 21:17 Nasal Coronavir OC43 PCR NOT DETECTED 07/25/21 21:17 Nasal Enterovir/Rhinovir PCR NOT DETECTED 07/25/21 21:17 Nasal Influenza B PCR NOT DETECTED 07/25/21 21:17 Nasal Influenza A PCR NOT DETECTED 07/25/21 21:17 Nasal Parainfluen 1 PCR NOT DETECTED 07/25/21 21:17 Nasal Parainfluen 2 PCR NOT DETECTED 07/25/21 21:17 Nasal Parainfluen 3 PCR NOT DETECTED 07/25/21 21:17 Nasal Parainfluen 4 PCR NOT DETECTED 07/25/21 21:17 Nasal RSV (PCR) NOT DETECTED 07/25/21 21:17 Nasal Screen MRSA (PCR) NEGATIVE (NEGATIVE) 07/26/21 07:15 Nasal B.pertussis DNA PCR NOT DETECTED 07/25/21 21:17 Nasal C.pneumoniae (PCR) NOT DETECTED 07/25/21 21:17 Emile Human Metapneumo PCR NOT DETECTED 07/25/21 21:17 Nasal M.pneumoniae (PCR) NOT DETECTED 07/25/21 21:17 Nasal SARS-CoV-2 (PCR) DETECTED A 07/25/21 21:17
[2021-07-27] MEDS: polyethylene glycoL 3350 17 GM PACKET PO SCH (17:09)
[2021-07-28 05:42] LABS: CALCIUM 8.5 mg/dL (8.5-10.3); CREATININE 0.7 mg/dL (0.6-1.2); POTASSIUM 4.4 mmol/L (3.5-5.0)
[2021-07-28] MEDS ORDERED: polyethylene glycoL 3350 17 GM PACKET PO SCH (09:00)
[2021-07-28] MEDS: REMDESIVIR 100MG VIAL 100 MG in SODIUM CHLORIDE 0.9% 100ML 100 ML IV SCH (10:45)
[2021-07-28] MEDS: SODIUM CHLORIDE FLUSH 0.9% 10 ML SYRINGE IVP SCH ×2 (10:45→17:15)
[2021-07-28] MEDS: DEXAMETHASONE 4 MG/ML VIAL IVP SCH (10:57)
[2021-07-28] MEDS: CHLORHEXIDINE GLUCONATE 15 ML UDC PO SCH ×2 (10:58→20:44)
[2021-07-28] MEDS: ENOXAPARIN 150 MG/ML SYRINGE SUBQ SCH ×2 (10:58→20:44)
[2021-07-28] MEDS: LOSARTAN 50 MG TABLET PO SCH (10:58)
[2021-07-28] MEDS: ACETAMINOPHEN 325 MG TABLET PO PRN ×2 (10:59→18:46)
[2021-07-28] MEDS: BENZONATATE 100 MG CAPSULE PO PRN ×3 (10:59→20:44)
[2021-07-28] MEDS: guaiFENesin/CODEINE 5 ML UDC PO PRN ×2 (10:59→20:44)
[2021-07-28] MEDS: polyethylene glycoL 3350 17 GM PACKET PO SCH (11:13)
[2021-07-28] MEDS: DOCUSATE SODIUM 250 MG CAPSULE PO SCH (11:13)
[2021-07-28] MEDS: SENNA 8.6 MG TABLET PO SCH (11:14)
[2021-07-28] MEDS: SODIUM CHLORIDE FLUSH 0.9% 10 ML SYRINGE IVP PRN (11:33)
--- NOTE | 2021-07-28 16:02 | PROVIDER PROGRESS NOTE ---
Assessment/Plan - Problem List (1) Acute respiratory failure with hypoxia Assessment/Plan: This is secondary to COVID-19 pneumonia. His oxygen requirements are high and he is saturating adequately on High flow oxygen. His D-dimer was noted to be elevated at greater than 800. He is on Decadron 6 mg IV daily and Remdesivir. 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 If his respiratory status stabilizes and we will try to obtain a CTA of the chest and if there is no evidence of pulmonary embolism then we can place him on just prophylactic dose of Lovenox. Currently there is no evidence of bacterial infection and if he does not worsen from a pulmonary standpoint, we will hold off on empiric antibiotics. Continue supplemental high flow nasal cannula oxygen, with target sats 89% or higher. Regarding intubation, he prefers to hold off on it but is agreeable if necessary. (2) COVID-19 Assessment/Plan: This is the cause of his acute respiratory failure with hypoxia. Continue Remdesivir, iv Decadron, Mucinex, Robitussin, supplemental O2. Remain in ICU, given high O2 supplement needs Continue with contact precautions. (3) Hypertension Assessment/Plan: He is on losartan at home. Currently he is normotensive and so we will hold the losartan. We will resume when appropriate. (4) Morbid obesity with BMI of 45.0-49.9, adult Assessment/Plan: As per Hx, which gives him higher chance of obesity-hypoventilation syndrome. - Current Meds Current Meds: Current Medications Generic Name Dose Route Start Last Admin Trade Name Epiq PRN Reason Stop Dose Admin Acetaminophen 650 mg 07/25/21 23:05 07/28/21 10:59 Acetaminophen 325 Mg Tablet PO 650 mg Q4HR PRN Administration Pain 1 to 4 Benzonatate 100 mg 07/26/21 00:48 07/28/21 10:59 Benzonatate 100 Mg Capsule PO 100 mg TID PRN Administration Cough Chlorhexidine Gluconate 15 ml 07/26/21 09:00 07/28/21 10:58 Chlorhexidine Gluconate 15 Ml Udc PO 15 ml BID CATARINO Administration Dexamethasone 6 mg 07/26/21 09:00 07/28/21 10:57 Dexamethasone 4 Mg/Ml Vial IVP 6 mg DAILY CATARINO Administration Docusate Sodium 250 - 500 mg 07/28/21 09:00 07/28/21 11:13 Docusate Sodium 250 Mg Capsule PO Not Given DAILY CATARINO Enoxaparin Sodium 150 mg 07/26/21 09:00 07/28/21 10:58 Enoxaparin 150 Mg/Ml Syringe SUBQ 150 mg BID CATARINO Administration Guaifenesin/Codeine Phosphate 5 ml 07/26/21 00:48 07/28/21 10:59 Guaifenesin/Codeine 5 Ml Udc PO 5 ml Q6HR PRN Administration Cough Remdesivir 100 mg/ Sodium 100 mls @ 200 mls/hr 07/27/21 09:00 07/28/21 11:32 Chloride IV 07/30/21 09:29 Infused DAILY CATARINO Infusion Losartan Potassium 50 mg 07/26/21 11:00 07/28/21 10:58 Losartan 50 Mg Tablet PO 50 mg DAILY CATARINO Administration Polyethylene Glycol 17 gm 07/27/21 15:00 07/28/21 11:13 Polyethylene Glycol 3350 17 Gm Packet PO Not Given DAILY CATARINO Senna 8.6 - 17.2 mg 07/28/21 09:00 07/28/21 11:14 Senna 8.6 Mg Tablet PO Not Given DAILY CATARINO Sodium Chloride 10 ml 07/25/21 23:05 07/28/21 11:33 Sodium Chloride Flush 0.9% 10 Ml Syringe IVP 10 ml PRN PRN Administration NEEDED PER PROVIDER ORDERS Sodium Chloride 10 ml 07/26/21 01:00 07/28/21 10:45 Sodium Chloride Flush 0.9% 10 Ml Syringe IVP 10 ml 0100,0900,1700 CATARINO Administration - Lab Result Fish Bone Diagrams: 07/27/21 04:48 07/28/21 04:16 Subjective - Subjective Patient Reports: Feeling Better (Less air hunger, less cough and better expectoration) Nursing Reports: Other (RT needed to increase O2 from 35L to 45L her high flow) Objective Vital Signs: Vital Signs - 24 hr 07/27/21 07/27/21 07/27/21 17:00 18:00 19:00 Temperature Heart Rate [ 82 85 82 Brachial] Heart Rate [ Monitoring electrodes] Respiratory 30 H 32 H 26 H Rate Blood Pressure [Left Radial artery] Blood Pressure 148/93 H 151/85 H 151/85 H [Right Brachial artery] O2 Saturation 88 L 89 L 87 L 07/27/21 07/27/21 07/27/21 20:00 21:00 22:00 Temperature Heart Rate [ 84 83 81 Brachial] Heart Rate [ Monitoring electrodes] Respiratory 23 26 H 20 Rate Blood Pressure [Left Radial artery] Blood Pressure 135/69 H 156/85 H 164/108 H [Right Brachial artery] O2 Saturation 93 88 L 89 L 07/27/21 07/27/21 07/28/21 23:00 23:56 01:00 Temperature 36.8 C Heart Rate [ 78 81 77 Brachial] Heart Rate [ Monitoring electrodes] Respiratory 20 22 21 Rate Blood Pressure [Left Radial artery] Blood Pressure 154/96 H 150/91 H [Right Brachial artery] O2 Saturation 89 L 92 92 07/28/21 07/28/21 07/28/21 02:00 03:00 04:00 Temperature 36.7 C Heart Rate [ 74 75 79 Brachial] Heart Rate [ Monitoring electrodes] Respiratory 24 23 27 H Rate Blood Pressure [Left Radial artery] Blood Pressure 122/78 168/102 H 133/120 H [Right Brachial artery] O2 Saturation 93 93 91 L 07/28/21 07/28/21 07/28/21 05:00 06:00 08:00 Temperature 36.5 C Heart Rate [ 78 87 80 Brachial] Heart Rate [ Monitoring electrodes] Respiratory 21 27 H 20 Rate Blood Pressure [Left Radial artery] Blood Pressure 156/96 H 158/81 H 130/83 H [Right Brachial artery] O2 Saturation 86 L 91 L 94 07/28/21 07/28/21 07/28/21 09:00 10:00 11:00 Temperature Heart Rate [ 81 89 82 Brachial] Heart Rate [ Monitoring electrodes] Respiratory 27 H 29 H 19 Rate Blood Pressure [Left Radial artery] Blood Pressure 138/78 H 153/80 H 154/96 H [Right Brachial artery] O2 Saturation 86 L 86 L 88 L 07/28/21 07/28/21 07/28/21 11:37 12:00 13:00 Temperature 36.6 C Heart Rate [ 76 79 Brachial] Heart Rate [ Monitoring electrodes] Respiratory 22 19 Rate Blood Pressure [Left Radial artery] Blood Pressure 155/89 H 141/87 H [Right Brachial artery] O2 Saturation 95 91 L 07/28/21 07/28/21 14:00 15:00 Temperature Heart Rate [ Brachial] Heart Rate [ 83 76 Monitoring electrodes] Respiratory 26 H 16 Rate Blood Pressure 127/75 151/103 H [Left Radial artery] Blood Pressure [Right Brachial artery] O2 Saturation 93 93 Oxygen O2 Source [facility] Oxygen Flow Rate 2 I&O (Last 24 Hrs): Intake and Output Totals x24h 07/26/21 07/27/21 07/28/21 23:59 23:59 23:59 Intake Total 2660 2740 1900 Output Total 1500 3620 1925 Balance 1160 -880 -25 General: Alert, Oriented x3, Other (sitting in a chair) HEENT: Mucous membr. moist/pink, Other (High flow cannula on) Neck: Supple Neuro: Alert, Non Focal Cardiovascular: Regular rate, No murmurs Respiratory: Chest non-tender, Other (Better air movement than yesterday, no wheezing L posterior rales) Abdomen: Normal bowel sounds (Obese with a pannus), Soft Extremities: No clubbing, No edema Skin: No rashes - Results Results: Laboratory Results WBC 9.6 x10^3/uL (4.8-10.8) 07/27/21 04:48 RBC 4.82 10^6/uL (4.70-6.10) 07/27/21 04:48 Hgb 15.5 g/dL (14.0-18.0) 07/27/21 04:48 Hct 45.8 % (42.0-52.0) 07/27/21 04:48 MCV 95.0 fL (80.0-94.0) H 07/27/21 04:48 MCH 32.2 pg (27.0-31.0) H 07/27/21 04:48 MCHC 33.8 g/dL (32.0-36.0) 07/27/21 04:48 RDW 13.6 % (12.0-15.0) 07/27/21 04:48 Plt Count 280 10^3/uL (130-450) 07/27/21 04:48 MPV 10.0 fL (7.4-11.4) 07/27/21 04:48 Neut # (Auto) 7.3 10^3/uL (1.5-6.6) H 07/27/21 04:48 Lymph # (Auto) 1.5 10^3/uL (1.5-3.5) 07/27/21 04:48 [place] # (Auto) 0.9 10^3/uL (0.0-1.0) 07/27/21 04:48 Eos # (Auto) 0.0 10^3/uL (0.0-0.7) 07/27/21 04:48 Baso # (Auto) 0.0 10^3/uL (0.0-0.1) 07/27/21 04:48 Absolute Nucleated RBC 0.00 x10^3/uL 07/27/21 04:48 Nucleated RBC % 0.0 /100WBC 07/27/21 04:48 ESR 18 mm/Hr (0-15) H 07/25/21 21:17 D-Dimer 525.7 ng/mL (200.0-255.0) H 07/28/21 04:16 VBG pH 7.423 (7.31-7.41) H 07/25/21 21:17 VBG pCO2 37.3 mmHg (41-51) L 07/25/21 21:17 VBG pO2 40.8 mmHg (25-47) 07/25/21 21:17 VBG HCO3 23.8 mmol/L (23-28) 07/25/21 21:17 VBG Total CO2 25.0 mmol/L (24-29) 07/25/21 21:17 VBG O2 Saturation 77.9 % (60-80) 07/25/21 21:17 VBG Base Excess -0.2 mmol/L (-2 - +2) 07/25/21 21:17 Sodium 136 mmol/L (135-145) 07/28/21 04:16 Potassium 4.4 mmol/L (3.5-5.0) 07/28/21 04:16 Chloride 100 mmol/L (101-111) L 07/28/21 04:16 Carbon Dioxide 25 mmol/L (21-32) 07/28/21 04:16 Anion Gap 11.0 (6-13) 07/28/21 04:16 BUN 25 mg/dL (6-20) H 07/28/21 04:16 Creatinine 0.7 mg/dL (0.6-1.2) 07/28/21 04:16 Estimated GFR (MDRD) 121 (>89) 07/28/21 04:16 Glucose 155 mg/dL (70-100) H 07/28/21 04:16 Calcium 8.5 mg/dL (8.5-10.3) 07/28/21 04:16 Total Bilirubin 0.5 mg/dL (0.2-1.0) 07/25/21 21:17 AST 57 IU/L (10-42) H 07/25/21 21:17 ALT 49 IU/L (10-60) 07/25/21 21:17 Alkaline Phosphatase 47 IU/L (42-121) 07/25/21 21:17 Lactate Dehydrogenase 484 IU/L (91-225) H 07/28/21 04:16 Troponin I High Sens 6.2 ng/L (2.3-19.7) 07/25/21 21:17 C-React Prot High Sens 109.2 mg/L 07/25/21 21:17 Total Protein 7.1 g/dL (6.7-8.2) 07/25/21 21:17 Albumin 3.9 g/dL (3.2-5.5) 07/25/21 21:17 Globulin 3.2 g/dL (2.1-4.2) 07/25/21 21:17 Albumin/Globulin Ratio 1.2 (1.0-2.2) 07/25/21 21:17 Lipase 30 U/L (22-51) 07/25/21 21:17 Nasal Adenovirus (PCR) NOT DETECTED 07/25/21 21:17 Nasal B. parapertussis DNA (PCR) NOT DETECTED 07/25/21 21:17 Nasal Coronavir 229E PCR NOT DETECTED 07/25/21 21:17 Nasal Coronavir HKU1 PCR NOT DETECTED 07/25/21 21:17 Nasal Coronavir NL63 PCR NOT DETECTED 07/25/21 21:17 Nasal Coronavir OC43 PCR NOT DETECTED 07/25/21 21:17 Nasal Enterovir/Rhinovir PCR NOT DETECTED 07/25/21 21:17 Nasal Influenza B PCR NOT DETECTED 07/25/21 21:17 Nasal Influenza A PCR NOT DETECTED 07/25/21 21:17 Nasal Parainfluen 1 PCR NOT DETECTED 07/25/21 21:17 Nasal Parainfluen 2 PCR NOT DETECTED 07/25/21 21:17 Nasal Parainfluen 3 PCR NOT DETECTED 07/25/21 21:17 Nasal Parainfluen 4 PCR NOT DETECTED 07/25/21 21:17 Nasal RSV (PCR) NOT DETECTED 07/25/21 21:17 Nasal Screen MRSA (PCR) NEGATIVE (NEGATIVE) 07/26/21 07:15 Nasal B.pertussis DNA PCR NOT DETECTED 07/25/21 21:17 Nasal C.pneumoniae (PCR) NOT DETECTED 07/25/21 21:17 Emile Human Metapneumo PCR NOT DETECTED 07/25/21 21:17 Nasal M.pneumoniae (PCR) NOT DETECTED 07/25/21 21:17 Nasal SARS-CoV-2 (PCR) DETECTED A 07/25/21 21:17
[2021-07-29 05:10] LABS: CALCIUM 8.4 mg/dL (8.5-10.3); CREATININE 0.7 mg/dL (0.6-1.2); POTASSIUM 4.4 mmol/L (3.5-5.0)
[2021-07-29] MEDS: SODIUM CHLORIDE FLUSH 0.9% 10 ML SYRINGE IVP SCH ×3 (06:42→19:48)
[2021-07-29 07:03] LABS: VBG PH 7.395 (7.31-7.41)
[2021-07-29 07:04] LABS: CALCIUM, IONIZED 1.1 mmol/L (1.15-1.33)
[2021-07-29] MEDS: CHLORHEXIDINE GLUCONATE 15 ML UDC PO SCH ×2 (09:03→21:39)
[2021-07-29] MEDS: DEXAMETHASONE 4 MG/ML VIAL IVP SCH (09:04)
[2021-07-29] MEDS: DOCUSATE SODIUM 250 MG CAPSULE PO SCH (09:04)
[2021-07-29] MEDS: LOSARTAN 50 MG TABLET PO SCH (09:05)
[2021-07-29] MEDS: ENOXAPARIN 150 MG/ML SYRINGE SUBQ SCH (09:05)
[2021-07-29] MEDS: polyethylene glycoL 3350 17 GM PACKET PO SCH (09:05)
[2021-07-29] MEDS: REMDESIVIR 100MG VIAL 100 MG in SODIUM CHLORIDE 0.9% 100ML 100 ML IV SCH (09:06)
[2021-07-29] MEDS: SENNA 8.6 MG TABLET PO SCH (09:06)
[2021-07-29] MEDS: BENZONATATE 100 MG CAPSULE PO PRN ×2 (09:17→21:39)
[2021-07-29] MEDS: guaiFENesin/CODEINE 5 ML UDC PO PRN ×2 (09:17→19:45)
--- NOTE | 2021-07-29 13:29 | PROVIDER PROGRESS NOTE ---
Assessment/Plan - Problem List (1) Acute respiratory failure with hypoxia Assessment/Plan: This is secondary to COVID-19 pneumonia. His oxygen requirements are high and he is saturating adequately on High flow oxygen. He is on Decadron 6 mg IV daily and Remdesivir. His D-dimer was noted to be elevated at greater than 800. 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 If his respir atory status stabilizes and we will try to obtain a CTA of the chest and if there is no evidence of pulmonary embolism then we can place him on just prophylactic dose of Lovenox. He is improving without empiric antibiotics. Continue supplemental high flow nasal cannula oxygen, with target sats 89% or higher. Can transfer out of ICU if he can transition over to other supplemental oxygen (not high flow, O2, per hospital protocol). (2) COVID-19 Assessment/Plan: This is the cause of his acute respiratory failure with hypoxia. Continue Remdesivir, iv Decadron, Mucinex, Robitussin, supplemental O2, and vitamin supplements Remain in ICU, given high O2 supplement needs I discussed with him to retry proning Will also order to ambukate in room Continue with contact precautions. (3) Hypertension Assessment/Plan: He is on losartan at home. Will resume it for HTN (4) Morbid obesity with BMI of 45.0-49.9, adult Assessment/Plan: As per Hx, which gives him higher chance of obesity-hypoventilation syndrome. - Current Meds Current Meds: Current Medications Generic Name Dose Route Start Last Admin Trade Name Morteza PRN Reason Stop Dose Admin Acetaminophen 650 mg 07/25/21 23:05 07/28/21 18:46 Acetaminophen 325 Mg Tablet PO 650 mg Q4HR PRN Administration Pain 1 to 4 Benzonatate 100 mg 07/26/21 00:48 07/29/21 09:17 Benzonatate 100 Mg Capsule PO 100 mg TID PRN Administration Cough Chlorhexidine Gluconate 15 ml 07/26/21 09:00 07/29/21 09:03 Chlorhexidine Gluconate 15 Ml Udc PO 15 ml BID CATARINO Administration Dexamethasone 6 mg 07/26/21 09:00 07/29/21 09:04 Dexamethasone 4 Mg/Ml Vial IVP 6 mg DAILY CATARINO Administration Docusate Sodium 250 - 500 mg 07/28/21 09:00 07/29/21 09:04 Docusate Sodium 250 Mg Capsule PO 250 mg DAILY CATARINO Administration Enoxaparin Sodium 150 mg 07/26/21 09:00 07/29/21 09:05 Enoxaparin 150 Mg/Ml Syringe SUBQ 150 mg BID CATARINO Administration Guaifenesin/Codeine Phosphate 5 ml 07/26/21 00:48 07/29/21 09:17 Guaifenesin/Codeine 5 Ml Udc PO 5 ml Q6HR PRN Administration Cough Remdesivir 100 mg/ Sodium 100 mls @ 200 mls/hr 07/27/21 09:00 07/29/21 10:01 Chloride IV 07/30/21 09:29 Infused DAILY CATARINO Infusion Losartan Potassium 50 mg 07/26/21 11:00 07/29/21 09:05 Losartan 50 Mg Tablet PO 50 mg DAILY CATARINO Administration Polyethylene Glycol 17 gm 07/27/21 15:00 07/29/21 09:05 Polyethylene Glycol 3350 17 Gm Packet PO 17 gm DAILY CATARINO Administration Senna 8.6 - 17.2 mg 07/28/21 09:00 07/29/21 09:06 Senna 8.6 Mg Tablet PO 8.6 mg DAILY CATARINO Administration Sodium Chloride 10 ml 07/25/21 23:05 07/28/21 11:33 Sodium Chloride Flush 0.9% 10 Ml Syringe IVP 10 ml PRN PRN Administration NEEDED PER PROVIDER ORDERS Sodium Chloride 10 ml 07/26/21 01:00 07/29/21 09:07 Sodium Chloride Flush 0.9% 10 Ml Syringe IVP 10 ml 0100,0900,1700 CATARINO Administration - Lab Result Fish Bone Diagrams: 07/27/21 04:48 07/29/21 04:23 Subjective - Subjective Patient Reports: Shortness of Breath (No new complaints. Is apneic and has been sleeping in his chair ever since admission. He tried proning on the first night of admission and had a very severe coughing spell) Nursing Reports: Other (RT has been able to decrease his HF oxygen from 45 L to 30 L today) Objective Vital Signs: Vital Signs - 24 hr 07/28/21 07/28/21 07/28/21 14:00 15:00 16:00 Temperature Heart Rate [ 83 76 75 Monitoring electrodes] Respiratory 26 H 16 26 H Rate Blood Pressure 127/75 151/103 H 141/73 H [Left Radial artery] O2 Saturation 93 93 93 07/28/21 07/28/21 07/28/21 17:00 18:00 19:00 Temperature Heart Rate [ 77 77 80 Monitoring electrodes] Respiratory 23 28 H 18 Rate Blood Pressure 140/94 H 152/87 H 141/81 H [Left Radial artery] O2 Saturation 90 L 88 L 90 L 07/28/21 07/28/21 07/28/21 20:00 21:00 22:00 Temperature 36.7 C Heart Rate [ 79 71 82 Monitoring electrodes] Respiratory 20 24 24 Rate Blood Pressure 144/94 H 145/83 H 152/92 H [Left Radial artery] O2 Saturation 92 94 91 L 07/28/21 07/28/21 07/29/21 23:00 23:59 01:00 Temperature 36.7 C Heart Rate [ 80 72 75 Monitoring electrodes] Respiratory 15 21 20 Rate Blood Pressure 142/84 H 153/95 H 138/97 H [Left Radial artery] O2 Saturation 90 L 91 L 92 07/29/21 07/29/21 07/29/21 02:51 03:00 04:00 Temperature Heart Rate [ 88 76 74 Monitoring electrodes] Respiratory 26 H 13 21 Rate Blood Pressure 129/87 H 132/82 H 152/103 H [Left Radial artery] O2 Saturation 98 91 L 90 L 07/29/21 07/29/21 07/29/21 05:00 06:00 07:00 Temperature Heart Rate [ 70 73 72 Monitoring electrodes] Respiratory 22 23 22 Rate Blood Pressure 127/84 H 146/93 H 150/94 H [Left Radial artery] O2 Saturation 91 L 92 92 07/29/21 07/29/21 07/29/21 09:00 10:00 11:00 Temperature Heart Rate [ 79 77 71 Monitoring electrodes] Respiratory 23 19 23 Rate Blood Pressure 148/99 H 139/91 H 142/83 H [Left Radial artery] O2 Saturation 90 L 93 93 Oxygen O2 Source [facility] Oxygen Flow Rate 2 I&O (Last 24 Hrs): Intake and Output Totals x24h 07/27/21 07/28/21 07/29/21 23:59 23:59 23:59 Intake Total 2740 3170 1760 Output Total 3620 3125 1150 Balance -880 45 610 General: Alert HEENT: Mucous membr. moist/pink Neck: Supple Neuro: Alert, Non Focal Cardiovascular: Regular rate Respiratory: Other (On O2 High-flow) Abdomen: Other (Obese) Extremities: No edema - Results Results: Laboratory Results WBC 9.6 x10^3/uL (4.8-10.8) 07/27/21 04:48 RBC 4.82 10^6/uL (4.70-6.10) 07/27/21 04:48 Hgb 15.5 g/dL (14.0-18.0) 07/27/21 04:48 Hct 45.8 % (42.0-52.0) 07/27/21 04:48 MCV 95.0 fL (80.0-94.0) H 07/27/21 04:48 MCH 32.2 pg (27.0-31.0) H 07/27/21 04:48 MCHC 33.8 g/dL (32.0-36.0) 07/27/21 04:48 RDW 13.6 % (12.0-15.0) 07/27/21 04:48 Plt Count 280 10^3/uL (130-450) 07/27/21 04:48 MPV 10.0 fL (7.4-11.4) 07/27/21 04:48 Neut # (Auto) 7.3 10^3/uL (1.5-6.6) H 07/27/21 04:48 Lymph # (Auto) 1.5 10^3/uL (1.5-3.5) 07/27/21 04:48 [place] # (Auto) 0.9 10^3/uL (0.0-1.0) 07/27/21 04:48 Eos # (Auto) 0.0 10^3/uL (0.0-0.7) 07/27/21 04:48 Baso # (Auto) 0.0 10^3/uL (0.0-0.1) 07/27/21 04:48 Absolute Nucleated RBC 0.00 x10^3/uL 07/27/21 04:48 Nucleated RBC % 0.0 /100WBC 07/27/21 04:48 ESR 18 mm/Hr (0-15) H 07/25/21 21:17 D-Dimer 525.7 ng/mL (200.0-255.0) H 07/28/21 04:16 VBG pH 7.395 (7.31-7.41) 07/29/21 06:53 VBG pCO2 37.3 mmHg (41-51) L 07/25/21 21:17 VBG pO2 40.8 mmHg (25-47) 07/25/21 21:17 VBG HCO3 23.8 mmol/L (23-28) 07/25/21 21:17 VBG Total CO2 25.0 mmol/L (24-29) 07/25/21 21:17 VBG O2 Saturation 77.9 % (60-80) 07/25/21 21:17 VBG Base Excess -0.2 mmol/L (-2 - +2) 07/25/21 21:17 Ionized Calcium 1.10 mmol/L (1.15-1.33) L 07/29/21 06:53 Sodium 134 mmol/L (135-145) L 07/29/21 04:23 Potassium 4.4 mmol/L (3.5-5.0) 07/29/21 04:23 Chloride 97 mmol/L (101-111) L 07/29/21 04:23 Carbon Dioxide 26 mmol/L (21-32) 07/29/21 04:23 Anion Gap 11.0 (6-13) 07/29/21 04:23 BUN 23 mg/dL (6-20) H 07/29/21 04:23 Creatinine 0.7 mg/dL (0.6-1.2) 07/29/21 04:23 Estimated GFR (MDRD) 121 (>89) 07/29/21 04:23 Glucose 153 mg/dL (70-100) H 07/29/21 04:23 Calcium 8.4 mg/dL (8.5-10.3) L 07/29/21 04:23 Total Bilirubin 0.5 mg/dL (0.2-1.0) 07/25/21 21:17 AST 57 IU/L (10-42) H 07/25/21 21:17 ALT 49 IU/L (10-60) 07/25/21 21:17 Alkaline Phosphatase 47 IU/L (42-121) 07/25/21 21:17 Lactate Dehydrogenase 410 IU/L (91-225) H 07/29/21 04:23 Troponin I High Sens 6.2 ng/L (2.3-19.7) 07/25/21 21:17 C-React Prot High Sens 109.2 mg/L 07/25/21 21:17 Total Protein 7.1 g/dL (6.7-8.2) 07/25/21 21:17 Albumin 3.9 g/dL (3.2-5.5) 07/25/21 21:17 Globulin 3.2 g/dL (2.1-4.2) 07/25/21 21:17 Albumin/Globulin Ratio 1.2 (1.0-2.2) 07/25/21 21:17 Lipase 30 U/L (22-51) 07/25/21 21:17 Nasal Adenovirus (PCR) NOT DETECTED 07/25/21 21:17 Nasal B. parapertussis DNA (PCR) NOT DETECTED 07/25/21 21:17 Nasal Coronavir 229E PCR NOT DETECTED 07/25/21 21:17 Nasal Coronavir HKU1 PCR NOT DETECTED 07/25/21 21:17 Nasal Coronavir NL63 PCR NOT DETECTED 07/25/21 21:17 Nasal Coronavir OC43 PCR NOT DETECTED 07/25/21 21:17 Nasal Enterovir/Rhinovir PCR NOT DETECTED 07/25/21 21:17 Nasal Influenza B PCR NOT DETECTED 07/25/21 21:17 Nasal Influenza A PCR NOT DETECTED 07/25/21 21:17 Nasal Parainfluen 1 PCR NOT DETECTED 07/25/21 21:17 Nasal Parainfluen 2 PCR NOT DETECTED 07/25/21 21:17 Nasal Parainfluen 3 PCR NOT DETECTED 07/25/21 21:17 Nasal Parainfluen 4 PCR NOT DETECTED 07/25/21 21:17 Nasal RSV (PCR) NOT DETECTED 07/25/21 21:17 Nasal Screen MRSA (PCR) NEGATIVE (NEGATIVE) 07/26/21 07:15 Nasal B.pertussis DNA PCR NOT DETECTED 07/25/21 21:17 Nasal C.pneumoniae (PCR) NOT DETECTED 07/25/21 21:17 Emile Human Metapneumo PCR NOT DETECTED 07/25/21 21:17 Nasal M.pneumoniae (PCR) NOT DETECTED 07/25/21 21:17 Nasal SARS-CoV-2 (PCR) DETECTED A 07/25/21 21:17
[2021-07-29] MEDS: ACETAMINOPHEN 325 MG TABLET PO PRN (19:47)
[2021-07-29] MEDS: ENOXAPARIN 100 MG/ML SYRINGE SUBQ SCH (21:45)
[2021-07-30] MEDS: SODIUM CHLORIDE FLUSH 0.9% 10 ML SYRINGE IVP SCH ×3 (02:11→15:54)
[2021-07-30] MEDS: ACETAMINOPHEN 325 MG TABLET PO PRN ×2 (04:24→20:47)
[2021-07-30] MEDS: guaiFENesin/CODEINE 5 ML UDC PO PRN ×3 (04:25→20:47)
[2021-07-30] MEDS: SODIUM CHLORIDE FLUSH 0.9% 10 ML SYRINGE IVP PRN (04:29)
[2021-07-30 05:41] LABS: CALCIUM 8.4 mg/dL (8.5-10.3); CREATININE 0.7 mg/dL (0.6-1.2); POTASSIUM 4.5 mmol/L (3.5-5.0)
[2021-07-30] MEDS: polyethylene glycoL 3350 17 GM PACKET PO SCH ×2 (09:05→09:14)
[2021-07-30] MEDS: CHLORHEXIDINE GLUCONATE 15 ML UDC PO SCH ×2 (09:13→20:49)
[2021-07-30] MEDS: DEXAMETHASONE 4 MG/ML VIAL IVP SCH (09:13)
[2021-07-30] MEDS: DOCUSATE SODIUM 250 MG CAPSULE PO SCH (09:14)
[2021-07-30] MEDS: LOSARTAN 50 MG TABLET PO SCH (09:15)
[2021-07-30] MEDS: ENOXAPARIN 100 MG/ML SYRINGE SUBQ SCH ×2 (09:15→20:52)
[2021-07-30] MEDS: SENNA 8.6 MG TABLET PO SCH (09:15)
[2021-07-30] MEDS: REMDESIVIR 100MG VIAL 100 MG in SODIUM CHLORIDE 0.9% 100ML 100 ML IV SCH (09:16)
[2021-07-30] MEDS: ASCORBIC ACID 500 MG TABLET PO SCH (12:44)
[2021-07-30] MEDS: BENZONATATE 100 MG CAPSULE PO PRN ×2 (12:44→20:47)
[2021-07-30] MEDS: CHOLECALCIFEROL 5,000 UNIT CAPSULE PO SCH (12:44)
--- NOTE | 2021-07-30 15:09 | PROVIDER PROGRESS NOTE ---
Assessment/Plan - Problem List (1) Acute respiratory failure with hypoxia Assessment/Plan: This is due to COVID-19 pneumonia. His oxygen requirements are high and he is saturating adequately on High flow oxygen. He is on Decadron 6 mg IV daily and finishing Remdesivir. His D-dimer was noted to be elevated at greater than 800. 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 If his re spiratory status stabilizes and if we are still concerned about PE, will would consider obtain a CTA of the chest He is improving without empiric antibiotics. Continue supplemental high flow nasal cannula oxygen, with target sats 89% or higher. Can transfer out of ICU if he can transition over to other supplemental oxygen (not high flow, O2, per hospital protocol). (2) COVID-19 Assessment/Plan: This is the cause of his acute respiratory failure with hypoxia. He is finishing Remdesivir 5th dose today, is on iv Decadron, Mucinex, Robitussin, supplemental O2, and vitamin supplements Remain in ICU, given high O2 supplement needs I discussed with him to retry proning and to ambulate in room. Continue with contact precautions. (3) Hypertension Assessment/Plan: Stable on Losartan (4) Morbid obesity with BMI of 45.0-49.9, adult Assessment/Plan: As per Hx - Current Meds Current Meds: Current Medications Generic Name Dose Route Start Last Admin Trade Name Freq PRN Reason Stop Dose Admin Acetaminophen 650 mg 07/25/21 23:05 07/30/21 04:24 Acetaminophen 325 Mg Tablet PO 650 mg Q4HR PRN Administration Pain 1 to 4 Ascorbic Acid 500 mg 07/30/21 12:00 07/30/21 12:44 Ascorbic Acid 500 Mg Tablet PO 500 mg DAILY CATARINO Administration Benzonatate 100 mg 07/26/21 00:48 07/30/21 12:44 Benzonatate 100 Mg Capsule PO 100 mg TID PRN Administration Cough Chlorhexidine Gluconate 15 ml 07/26/21 09:00 07/30/21 09:13 Chlorhexidine Gluconate 15 Ml Udc PO 15 ml BID CATARINO Administration Cholecalciferol 5,000 unit 07/30/21 11:00 07/30/21 12:44 Cholecalciferol 5,000 Unit Capsule PO 5,000 unit DAILY CATARINO Administration Dexamethasone 6 mg 07/26/21 09:00 07/30/21 09:13 Dexamethasone 4 Mg/Ml Vial IVP 6 mg DAILY CATARINO Administration Docusate Sodium 250 - 500 mg 07/28/21 09:00 07/30/21 09:14 Docusate Sodium 250 Mg Capsule PO Not Given DAILY CATARINO Enoxaparin Sodium 150 mg 07/29/21 21:00 07/30/21 09:15 Enoxaparin 100 Mg/Ml Syringe SUBQ 150 mg BID CATARINO Administration Guaifenesin/Codeine Phosphate 5 ml 07/26/21 00:48 07/30/21 12:44 Guaifenesin/Codeine 5 Ml Udc PO 5 ml Q6HR PRN Administration Cough Losartan Potassium 50 mg 07/26/21 11:00 07/30/21 09:15 Losartan 50 Mg Tablet PO 50 mg DAILY CATARINO Administration Polyethylene Glycol 17 gm 07/27/21 15:00 07/30/21 09:14 Polyethylene Glycol 3350 17 Gm Packet PO Not Given DAILY CATARINO Senna 8.6 - 17.2 mg 07/28/21 09:00 07/30/21 09:15 Senna 8.6 Mg Tablet PO Not Given DAILY CATARINO Sodium Chloride 10 ml 07/25/21 23:05 07/30/21 04:29 Sodium Chloride Flush 0.9% 10 Ml Syringe IVP 10 ml PRN PRN Administration NEEDED PER PROVIDER ORDERS Sodium Chloride 10 ml 07/26/21 01:00 07/30/21 09:16 Sodium Chloride Flush 0.9% 10 Ml Syringe IVP 10 ml 0100,0900,1700 CATARINO Administration - Lab Result Fish Bone Diagrams: 07/27/21 04:48 07/31/21 06:53 - Additional Planning My Orders: My Active Orders 07/29/21 17:39 Miscellaenous Nursing Order [RC] QSHIFT 07/29/21 17:40 Miscellaenous Nursing Order [RC] QSHIFT 07/30/21 11:00 Cholecalciferol [Vitamin D3] 5,000 unit PO DAILY 07/30/21 12:00 Ascorbic Acid [Vitamin C] 500 mg PO DAILY Subjective - Subjective Patient Reports: Shortness of Breath, Other (Less cough) Objective Vital Signs: Vital Signs - 24 hr 09/08/1007/29/21 07/29/21 16:00 17:00 18:00 Temperature 37.5 C Heart Rate [ 79 76 76 Monitoring electrodes] Respiratory 24 20 22 Rate Blood Pressure 130/79 138/83 H 150/99 H [Left Radial artery] O2 Saturation 94 92 91 L 07/29/21 07/29/21 07/29/21 19:42 19:44 20:00 Temperature 36.4 C L Heart Rate [ 87 84 Monitoring electrodes] Respiratory 23 28 H 21 Rate Blood Pressure 140/84 H [Left Radial artery] O2 Saturation 94 94 89 L 07/29/21 07/29/21 07/29/21 21:00 22:00 23:00 Temperature Heart Rate [ 84 80 75 Monitoring electrodes] Respiratory 24 25 H 27 H Rate Blood Pressure 157/98 H 130/72 132/78 H [Left Radial artery] O2 Saturation 88 L 95 91 L 07/29/21 07/30/21 07/30/21 23:48 00:00 01:00 Temperature 36.5 C Heart Rate [ 83 83 Monitoring electrodes] Respiratory 21 21 Rate Blood Pressure 135/73 H 160/106 H [Left Radial artery] O2 Saturation 90 L 92 07/30/21 07/30/21 07/30/21 02:00 03:00 04:00 Temperature Heart Rate [ 67 70 67 Monitoring electrodes] Respiratory 27 H 27 H 23 Rate Blood Pressure 142/90 H 126/80 134/82 H [Left Radial artery] O2 Saturation 94 94 96 07/30/21 07/30/21 07/30/21 05:00 06:00 07:00 Temperature 36.5 C Heart Rate [ 68 81 69 Monitoring electrodes] Respiratory 24 29 H 21 Rate Blood Pressure 139/85 H [Left Radial artery] O2 Saturation 94 93 92 07/30/21 07/30/21 07/30/21 08:00 09:00 10:00 Temperature 36.7 C Heart Rate [ 78 72 79 Monitoring electrodes] Respiratory 25 H 24 26 H Rate Blood Pressure 142/94 H 136/82 H 151/99 H [Left Radial artery] O2 Saturation 91 L 91 L 94 07/30/21 07/30/21 07/30/21 11:00 12:00 13:00 Temperature 36.4 C L Heart Rate [ 75 80 82 Monitoring electrodes] Respiratory 24 22 24 Rate Blood Pressure 135/86 H 156/94 H 130/88 H [Left Radial artery] O2 Saturation 94 95 92 07/30/21 07/30/21 14:00 15:00 Temperature Heart Rate [ 80 82 Monitoring electrodes] Respiratory 22 24 Rate Blood Pressure 134/70 H 139/80 H [Left Radial artery] O2 Saturation 93 92 Oxygen O2 Source HHFNC Oxygen Flow Rate 2 I&O (Last 24 Hrs): Intake and Output Totals x24h 07/28/21 07/29/21 07/30/21 23:59 23:59 23:59 Intake Total 3170 2360 2240 Output Total 3125 2125 1550 Balance 45 235 690 General: Alert, Oriented x3 HEENT: Mucous membr. moist/pink, Other (Wearing HiFlow n.c.) Neck: Supple Neuro: Alert, Non Focal Cardiovascular: Regular rate Respiratory: No respiratory distress (at rest) Abdomen: Other (obese w/ pannus) Extremities: No edema - Results Results: Laboratory Results WBC 9.6 x10^3/uL (4.8-10.8) 07/27/21 04:48 RBC 4.82 10^6/uL (4.70-6.10) 07/27/21 04:48 Hgb 15.5 g/dL (14.0-18.0) 07/27/21 04:48 Hct 45.8 % (42.0-52.0) 07/27/21 04:48 MCV 95.0 fL (80.0-94.0) H 07/27/21 04:48 MCH 32.2 pg (27.0-31.0) H 07/27/21 04:48 MCHC 33.8 g/dL (32.0-36.0) 07/27/21 04:48 RDW 13.6 % (12.0-15.0) 07/27/21 04:48 Plt Count 280 10^3/uL (130-450) 07/27/21 04:48 MPV 10.0 fL (7.4-11.4) 07/27/21 04:48 Neut # (Auto) 7.3 10^3/uL (1.5-6.6) H 07/27/21 04:48 Lymph # (Auto) 1.5 10^3/uL (1.5-3.5) 07/27/21 04:48 Cannon # (Auto) 0.9 10^3/uL (0.0-1.0) 07/27/21 04:48 Eos # (Auto) 0.0 10^3/uL (0.0-0.7) 07/27/21 04:48 Baso # (Auto) 0.0 10^3/uL (0.0-0.1) 07/27/21 04:48 Absolute Nucleated RBC 0.00 x10^3/uL 07/27/21 04:48 Nucleated RBC % 0.0 /100WBC 07/27/21 04:48 ESR 18 mm/Hr (0-15) H 07/25/21 21:17 D-Dimer 525.7 ng/mL (200.0-255.0) H 07/28/21 04:16 VBG pH 7.395 (7.31-7.41) 07/29/21 06:53 VBG pCO2 37.3 mmHg (41-51) L 07/25/21 21:17 VBG pO2 40.8 mmHg (25-47) 07/25/21 21:17 VBG HCO3 23.8 mmol/L (23-28) 07/25/21 21:17 VBG Total CO2 25.0 mmol/L (24-29) 07/25/21 21:17 VBG O2 Saturation 77.9 % (60-80) 07/25/21 21:17 VBG Base Excess -0.2 mmol/L (-2 - +2) 07/25/21 21:17 Ionized Calcium 1.10 mmol/L (1.15-1.33) L 07/29/21 06:53 Sodium 135 mmol/L (135-145) 07/30/21 04:21 Potassium 4.5 mmol/L (3.5-5.0) 07/30/21 04:21 Chloride 99 mmol/L (101-111) L 07/30/21 04:21 Carbon Dioxide 25 mmol/L (21-32) 07/30/21 04:21 Anion Gap 11.0 (6-13) 07/30/21 04:21 BUN 23 mg/dL (6-20) H 07/30/21 04:21 Creatinine 0.7 mg/dL (0.6-1.2) 07/30/21 04:21 Estimated GFR (MDRD) 121 (>89) 07/30/21 04:21 Glucose 139 mg/dL (70-100) H 07/30/21 04:21 Calcium 8.4 mg/dL (8.5-10.3) L 07/30/21 04:21 Total Bilirubin 0.5 mg/dL (0.2-1.0) 07/25/21 21:17 AST 57 IU/L (10-42) H 07/25/21 21:17 ALT 49 IU/L (10-60) 07/25/21 21:17 Alkaline Phosphatase 47 IU/L (42-121) 07/25/21 21:17 Lactate Dehydrogenase 353 IU/L (91-225) H 07/30/21 04:21 Troponin I High Sens 6.2 ng/L (2.3-19.7) 07/25/21 21:17 C-React Prot High Sens 109.2 mg/L 07/25/21 21:17 Total Protein 7.1 g/dL (6.7-8.2) 07/25/21 21:17 Albumin 3.9 g/dL (3.2-5.5) 07/25/21 21:17 Globulin 3.2 g/dL (2.1-4.2) 07/25/21 21:17 Albumin/Globulin Ratio 1.2 (1.0-2.2) 07/25/21 21:17 Lipase 30 U/L (22-51) 07/25/21 21:17 Nasal Adenovirus (PCR) NOT DETECTED 07/25/21 21:17 Nasal B. parapertussis DNA (PCR) NOT DETECTED 07/25/21 21:17 Nasal Coronavir 229E PCR NOT DETECTED 07/25/21 21:17 Nasal Coronavir HKU1 PCR NOT DETECTED 07/25/21 21:17 Nasal Coronavir NL63 PCR NOT DETECTED 07/25/21 21:17 Nasal Coronavir OC43 PCR NOT DETECTED 07/25/21 21:17 Nasal Enterovir/Rhinovir PCR NOT DETECTED 07/25/21 21:17 Nasal Influenza B PCR NOT DETECTED 07/25/21 21:17 Nasal Influenza A PCR NOT DETECTED 07/25/21 21:17 Nasal Parainfluen 1 PCR NOT DETECTED 07/25/21 21:17 Nasal Parainfluen 2 PCR NOT DETECTED 07/25/21 21:17 Nasal Parainfluen 3 PCR NOT DETECTED 07/25/21 21:17 Nasal Parainfluen 4 PCR NOT DETECTED 07/25/21 21:17 Nasal RSV (PCR) NOT DETECTED 07/25/21 21:17 Nasal Screen MRSA (PCR) NEGATIVE (NEGATIVE) 07/26/21 07:15 Nasal B.pertussis DNA PCR NOT DETECTED 07/25/21 21:17 Nasal C.pneumoniae (PCR) NOT DETECTED 07/25/21 21:17 Emile Human Metapneumo PCR NOT DETECTED 07/25/21 21:17 Nasal M.pneumoniae (PCR) NOT DETECTED 07/25/21 21:17 Nasal SARS-CoV-2 (PCR) DETECTED A 07/25/21 21:17
[2021-07-31] MEDS: SODIUM CHLORIDE FLUSH 0.9% 10 ML SYRINGE IVP SCH ×4 (03:21→20:53)
[2021-07-31 07:27] LABS: CALCIUM 8.7 mg/dL (8.5-10.3); CREATININE 0.9 mg/dL (0.6-1.2); POTASSIUM 4.4 mmol/L (3.5-5.0)
[2021-07-31] MEDS: ASCORBIC ACID 500 MG TABLET PO SCH (10:38)
[2021-07-31] MEDS: BENZONATATE 100 MG CAPSULE PO PRN ×2 (10:38→20:56)
[2021-07-31] MEDS: guaiFENesin/CODEINE 5 ML UDC PO PRN ×2 (10:38→20:57)
[2021-07-31] MEDS: CHOLECALCIFEROL 5,000 UNIT CAPSULE PO SCH (10:38)
[2021-07-31] MEDS: LOSARTAN 50 MG TABLET PO SCH (10:38)
[2021-07-31] MEDS: CHLORHEXIDINE GLUCONATE 15 ML UDC PO SCH ×2 (10:38→20:53)
[2021-07-31] MEDS: DEXAMETHASONE 4 MG/ML VIAL IVP SCH (10:39)
[2021-07-31] MEDS: DOCUSATE SODIUM 250 MG CAPSULE PO SCH (10:39)
[2021-07-31] MEDS: SENNA 8.6 MG TABLET PO SCH (10:39)
[2021-07-31] MEDS: polyethylene glycoL 3350 17 GM PACKET PO SCH (10:40)
[2021-07-31] MEDS: ENOXAPARIN 100 MG/ML SYRINGE SUBQ SCH ×2 (10:41→20:54)
--- NOTE | 2021-07-31 16:59 | PROVIDER PROGRESS NOTE ---
Assessment/Plan - Problem List (1) Acute respiratory failure with hypoxia Assessment/Plan: This is due to COVID-19 pneumonia. His oxygen requirements are high and he is saturating adequately on Oximizer supplemental oxygen. He is on Decadron 6 mg IV daily and finished Remdesivir yesterday. His D-dimer was noted to be elevated at greater than 800. Continue therapeutic empiric Lovenox bid. He is improving without empiric antibiotics. Transfer out of ICU today. Continue to taper the O2 supplement settings down. If he can saturate adequately on 10L of O2 or less, per nasal cannula, he can be discharged home on new home oxygen, I told him. Will aim for this tomorrow. (2) COVID-19 Assessment/Plan: This is the cause of his acute respiratory failure with hypoxia. He finished Remdesivir 5th dose yesterday, he is on iv Decadron, Mucinex, Robitussin, supplemental O2, and vitamin supplements He wilol be out of ICU status today. I discussed with him proning as much as possible and to ambulate in room. Continue with contact precautions. (3) Hypertension Assessment/Plan: Stable BP on his home meds (4) Morbid obesity with BMI of 45.0-49.9, adult Assessment/Plan: As per Hx - Current Meds Current Meds: Current Medications Generic Name Dose Route Start Last Admin Trade Name Freq PRN Reason Stop Dose Admin Acetaminophen 650 mg 07/25/21 23:05 07/30/21 20:47 Acetaminophen 325 Mg Tablet PO 650 mg Q4HR PRN Administration Pain 1 to 4 Ascorbic Acid 500 mg 07/30/21 12:00 07/31/21 10:38 Ascorbic Acid 500 Mg Tablet PO 500 mg DAILY CATARINO Administration Benzonatate 100 mg 07/26/21 00:48 07/31/21 10:38 Benzonatate 100 Mg Capsule PO 100 mg TID PRN Administration Cough Chlorhexidine Gluconate 15 ml 07/26/21 09:00 07/31/21 10:38 Chlorhexidine Gluconate 15 Ml Udc PO 15 ml BID CATARINO Administration Cholecalciferol 5,000 unit 07/30/21 11:00 07/31/21 10:38 Cholecalciferol 5,000 Unit Capsule PO 5,000 unit DAILY CATARINO Administration Dexamethasone 6 mg 07/26/21 09:00 07/31/21 10:39 Dexamethasone 4 Mg/Ml Vial IVP 6 mg DAILY CATARINO Administration Docusate Sodium 250 - 500 mg 07/28/21 09:00 07/31/21 10:39 Docusate Sodium 250 Mg Capsule PO Not Given DAILY CATARINO Enoxaparin Sodium 150 mg 07/29/21 21:00 07/31/21 10:41 Enoxaparin 100 Mg/Ml Syringe SUBQ 150 mg BID CATARINO Administration Guaifenesin/Codeine Phosphate 5 ml 07/26/21 00:48 07/31/21 10:38 Guaifenesin/Codeine 5 Ml Udc PO 5 ml Q6HR PRN Administration Cough Losartan Potassium 50 mg 07/26/21 11:00 07/31/21 10:38 Losartan 50 Mg Tablet PO 50 mg DAILY CATARINO Administration Polyethylene Glycol 17 gm 07/27/21 15:00 07/31/21 10:40 Polyethylene Glycol 3350 17 Gm Packet PO Not Given DAILY CATARINO Senna 8.6 - 17.2 mg 07/28/21 09:00 07/31/21 10:39 Senna 8.6 Mg Tablet PO Not Given DAILY CATARINO Sodium Chloride 10 ml 07/25/21 23:05 07/30/21 04:29 Sodium Chloride Flush 0.9% 10 Ml Syringe IVP 10 ml PRN PRN Administration NEEDED PER PROVIDER ORDERS Sodium Chloride 10 ml 07/26/21 01:00 07/31/21 10:39 Sodium Chloride Flush 0.9% 10 Ml Syringe IVP 10 ml 0100,0900,1700 CATARINO Administration - Lab Result Fish Bone Diagrams: 07/27/21 04:48 07/31/21 06:53 - Additional Planning My Orders: My Active Orders 07/31/21 10:33 Telemetry- [RC] Q4HR Subjective - Subjective Patient Reports: Other (He proned for 3 hours. Less cough. He is happy that his O2 needs are decreasing.) Nursing Reports: Other (Turning down O2 setting to 10L today) Objective Vital Signs: Vital Signs - 24 hr 07/30/21 07/30/21 07/30/21 17:00 18:00 19:00 Temperature Heart Rate [ 82 86 85 Monitoring electrodes] Respiratory 23 20 Rate Blood Pressure 131/81 H 136/80 H 150/80 H [Left Radial artery] O2 Saturation 91 L 91 L 93 07/30/21 07/30/21 07/30/21 19:33 20:00 20:57 Temperature Heart Rate [ 77 Monitoring electrodes] Respiratory 20 18 18 Rate Blood Pressure 132/83 H [Left Radial artery] O2 Saturation 95 93 92 07/30/21 07/30/21 07/30/21 21:00 21:09 22:00 Temperature Heart Rate [ 74 76 Monitoring electrodes] Respiratory 23 22 Rate Blood Pressure 137/88 H 140/87 H [Left Radial artery] O2 Saturation 93 90 L 07/30/21 07/30/21 07/31/21 22:28 23:00 00:00 Temperature 36.6 C Heart Rate [ 76 68 Monitoring electrodes] Respiratory 22 12 21 Rate Blood Pressure 156/104 H 114/69 [Left Radial artery] O2 Saturation 96 91 L 95 07/31/21 07/31/21 07/31/21 01:00 01:10 01:20 Temperature Heart Rate [ 74 Monitoring electrodes] Respiratory 21 26 H Rate Blood Pressure 127/80 [Left Radial artery] O2 Saturation 92 92 07/31/21 07/31/21 07/31/21 02:00 03:00 03:21 Temperature 36.1 C L Heart Rate [ 68 72 Monitoring electrodes] Respiratory 25 H 21 16 Rate Blood Pressure 134/95 H [Left Radial artery] O2 Saturation 95 93 95 07/31/21 07/31/21 07/31/21 04:00 05:00 06:00 Temperature Heart Rate [ 70 71 70 Monitoring electrodes] Respiratory 25 H 24 26 H Rate Blood Pressure 129/84 H 120/75 134/75 H [Left Radial artery] O2 Saturation 93 92 96 07/31/21 07/31/21 07/31/21 07:00 08:00 09:00 Temperature Heart Rate [ 77 79 78 Monitoring electrodes] Respiratory 24 20 23 Rate Blood Pressure 138/104 H 138/95 H 141/67 H [Left Radial artery] O2 Saturation 92 93 93 07/31/21 07/31/21 07/31/21 09:15 10:00 11:00 Temperature 36.4 C L Heart Rate [ 87 84 Monitoring electrodes] Respiratory 24 23 Rate Blood Pressure 138/81 H 148/90 H [Left Radial artery] O2 Saturation 95 94 07/31/21 12:00 Temperature 36.6 C Heart Rate [ 83 Monitoring electrodes] Respiratory 21 Rate Blood Pressure 149/87 H [Left Radial artery] O2 Saturation 94 Oxygen O2 Source Oxymizer Oxygen Flow Rate 2 I&O (Last 24 Hrs): Intake and Output Totals x24h 07/29/21 07/30/21 07/31/21 23:59 23:59 23:59 Intake Total 2360 2960 1680 Output Total 2125 2225 1251 Balance 235 735 429 General: Alert, Oriented x3 HEENT: Mucous membr. moist/pink, Other (Wearing oximizer n.c.) Neck: Supple Neuro: Alert, Non Focal Cardiovascular: Regular rate, No murmurs Respiratory: No respiratory distress (on O2 at rest), Other (Crackle at L upper zone only, good air movement) Abdomen: Other (Obese with pannus) Extremities: No edema - Results Results: Laboratory Results WBC 9.6 x10^3/uL (4.8-10.8) 07/27/21 04:48 RBC 4.82 10^6/uL (4.70-6.10) 07/27/21 04:48 Hgb 15.5 g/dL (14.0-18.0) 07/27/21 04:48 Hct 45.8 % (42.0-52.0) 07/27/21 04:48 MCV 95.0 fL (80.0-94.0) H 07/27/21 04:48 MCH 32.2 pg (27.0-31.0) H 07/27/21 04:48 MCHC 33.8 g/dL (32.0-36.0) 07/27/21 04:48 RDW 13.6 % (12.0-15.0) 07/27/21 04:48 Plt Count 280 10^3/uL (130-450) 07/27/21 04:48 MPV 10.0 fL (7.4-11.4) 07/27/21 04:48 Neut # (Auto) 7.3 10^3/uL (1.5-6.6) H 07/27/21 04:48 Lymph # (Auto) 1.5 10^3/uL (1.5-3.5) 07/27/21 04:48 Bennett # (Auto) 0.9 10^3/uL (0.0-1.0) 07/27/21 04:48 Eos # (Auto) 0.0 10^3/uL (0.0-0.7) 07/27/21 04:48 Baso # (Auto) 0.0 10^3/uL (0.0-0.1) 07/27/21 04:48 Absolute Nucleated RBC 0.00 x10^3/uL 07/27/21 04:48 Nucleated RBC % 0.0 /100WBC 07/27/21 04:48 ESR 18 mm/Hr (0-15) H 07/25/21 21:17 D-Dimer 525.7 ng/mL (200.0-255.0) H 07/28/21 04:16 VBG pH 7.395 (7.31-7.41) 07/29/21 06:53 VBG pCO2 37.3 mmHg (41-51) L 07/25/21 21:17 VBG pO2 40.8 mmHg (25-47) 07/25/21 21:17 VBG HCO3 23.8 mmol/L (23-28) 07/25/21 21:17 VBG Total CO2 25.0 mmol/L (24-29) 07/25/21 21:17 VBG O2 Saturation 77.9 % (60-80) 07/25/21 21:17 VBG Base Excess -0.2 mmol/L (-2 - +2) 07/25/21 21:17 Ionized Calcium 1.10 mmol/L (1.15-1.33) L 07/29/21 06:53 Sodium 136 mmol/L (135-145) 07/31/21 06:53 Potassium 4.4 mmol/L (3.5-5.0) 07/31/21 06:53 Chloride 99 mmol/L (101-111) L 07/31/21 06:53 Carbon Dioxide 28 mmol/L (21-32) 07/31/21 06:53 Anion Gap 9.0 (6-13) 07/31/21 06:53 BUN 20 mg/dL (6-20) 07/31/21 06:53 Creatinine 0.9 mg/dL (0.6-1.2) 07/31/21 06:53 Estimated GFR (MDRD) 91 (>89) 07/31/21 06:53 Glucose 108 mg/dL (70-100) H 07/31/21 06:53 Calcium 8.7 mg/dL (8.5-10.3) 07/31/21 06:53 Total Bilirubin 0.5 mg/dL (0.2-1.0) 07/25/21 21:17 AST 57 IU/L (10-42) H 07/25/21 21:17 ALT 49 IU/L (10-60) 07/25/21 21:17 Alkaline Phosphatase 47 IU/L (42-121) 07/25/21 21:17 Lactate Dehydrogenase 323 IU/L (91-225) H 07/31/21 06:53 Troponin I High Sens 6.2 ng/L (2.3-19.7) 07/25/21 21:17 C-React Prot High Sens 109.2 mg/L 07/25/21 21:17 Total Protein 7.1 g/dL (6.7-8.2) 07/25/21 21:17 Albumin 3.9 g/dL (3.2-5.5) 07/25/21 21:17 Globulin 3.2 g/dL (2.1-4.2) 07/25/21 21:17 Albumin/Globulin Ratio 1.2 (1.0-2.2) 07/25/21 21:17 Lipase 30 U/L (22-51) 07/25/21 21:17 Nasal Adenovirus (PCR) NOT DETECTED 07/25/21 21:17 Nasal B. parapertussis DNA (PCR) NOT DETECTED 07/25/21 21:17 Nasal Coronavir 229E PCR NOT DETECTED 07/25/21 21:17 Nasal Coronavir HKU1 PCR NOT DETECTED 07/25/21 21:17 Nasal Coronavir NL63 PCR NOT DETECTED 07/25/21 21:17 Nasal Coronavir OC43 PCR NOT DETECTED 07/25/21 21:17 Nasal Enterovir/Rhinovir PCR NOT DETECTED 07/25/21 21:17 Nasal Influenza B PCR NOT DETECTED 07/25/21 21:17 Nasal Influenza A PCR NOT DETECTED 07/25/21 21:17 Nasal Parainfluen 1 PCR NOT DETECTED 07/25/21 21:17 Nasal Parainfluen 2 PCR NOT DETECTED 07/25/21 21:17 Nasal Parainfluen 3 PCR NOT DETECTED 07/25/21 21:17 Nasal Parainfluen 4 PCR NOT DETECTED 07/25/21 21:17 Nasal RSV (PCR) NOT DETECTED 07/25/21 21:17 Nasal Screen MRSA (PCR) NEGATIVE (NEGATIVE) 07/26/21 07:15 Nasal B.pertussis DNA PCR NOT DETECTED 07/25/21 21:17 Nasal C.pneumoniae (PCR) NOT DETECTED 07/25/21 21:17 Emile Human Metapneumo PCR NOT DETECTED 07/25/21 21:17 Nasal M.pneumoniae (PCR) NOT DETECTED 07/25/21 21:17 Nasal SARS-CoV-2 (PCR) DETECTED A 07/25/21 21:17
[2021-07-31] MEDS: ACETAMINOPHEN 325 MG TABLET PO PRN (20:56)
[2021-08-01] MEDS ORDERED: ENOXAPARIN 150 MG/ML SYRINGE SUBQ SCH (09:00)
[2021-08-01] MEDS: CHOLECALCIFEROL 5,000 UNIT CAPSULE PO SCH ×2 (10:36→10:41)
[2021-08-01] MEDS: DOCUSATE SODIUM 250 MG CAPSULE PO SCH (10:37)
[2021-08-01] MEDS: LOSARTAN 50 MG TABLET PO SCH (10:38)
[2021-08-01] MEDS: polyethylene glycoL 3350 17 GM PACKET PO SCH (10:38)
[2021-08-01] MEDS: SODIUM CHLORIDE FLUSH 0.9% 10 ML SYRINGE IVP SCH (10:38)
[2021-08-01] MEDS: SENNA 8.6 MG TABLET PO SCH (10:38)
[2021-08-01] MEDS: ASCORBIC ACID 500 MG TABLET PO SCH (10:40)
[2021-08-01] MEDS: DEXAMETHASONE 4 MG/ML VIAL IVP SCH (10:40)
[2021-08-01] MEDS: CHLORHEXIDINE GLUCONATE 15 ML UDC PO SCH (10:41)
[2021-08-01] MEDS: guaiFENesin/CODEINE 5 ML UDC PO PRN (10:53)
[2021-08-01] MEDS: BENZONATATE 100 MG CAPSULE PO PRN (10:53)
--- NOTE | 2021-08-01 11:32 | Discharge Plan ---
Discharge Plan Problem Reviewed?: Yes Disposition: Home, Self Care Condition: Fair Diet: Regular (Please start a low-caloroe diet for weight loss) Activity Restrictions: Quarantine as directed Shower Restrictions: No Driving Restrictions: No Instruction Topics: COVID-[address] [facility] Department Statement Health Concerns: You were hospitalized because you had dangerously low oxygen levels caused by a Covid pneumonia. You received therapy here using IV steroids and IV Remdesivir. Your oxygen needs have decreased but you still need to use some oxygen after discharge. A new order is being placed for you to get home oxygen. Please have the O2 setting at 4 L/min continuously. You should see your Primary Care Provider in the next 1 to 2 weeks for a hospital follow-up visit, and for determining when you may stop using the oxygen and when you may return to work. The [employer] will let you have oxygen for up to 2 months. YOU SHOULD REMAIN IN QUARANTINE (EVEN FROM FAMILY MEMBERS) THROUGH Mon08/04/21. Even though you had COVID, you should still plan on getting the Covid vaccination when your doctor tells you it is safe for you to do. You may resume all your usual pre-hospital medications. It is OK to take standard supplements to boost your immunity. If you still have an annoying cough, you may use [id number] Robitussin liquid or [id number] Mucinex. You may keep using the incentive spirometer too, and keep sleeping on your stomach for opening up the lungs. Plan of Treatment: As above. Care Goals: Improvement in symptoms and stabilization are the goals. Assessment: The patient understands and is agreeable with the plan. Additional Instructions or Follow Up instructions: If you have new or worsening symptoms, call your PCP for advice or come to the ER. No Smoking: If you smoke, Please STOP! Call for help. Follow-up with: Marcia Blanco MD [Physician No Access] -
--- NOTE | 2021-08-01 11:40 | DISCHARGE SUMMARY ---
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 He has just not gotten around to getting vaccinated. He became ill over a week ago while on the road. He was miserable with cough, fever, body aches. He came home ill and was tested in the walk-in clinic July 20 and was positive for COVID-19. He has been at home quarantining. His and two younger kids (twins) are ill with this as well. has only been sick for 3 days and his twins became ill today. He has become increasingly more short of breath, coughing non stop and can't get his breath. Has no appetite. Denies chest pain, pleuritic pain, abd pain, diarrhea, hemoptysis. No phlegm production. Came to the emergency room and his temperature is 38.6. Heart rate is 111. He is 89% on room air. Initially was requiring 2 L to maintain O2 sat and is now up to 5 L to maintain O2 sat at 91%. Blood pressure is stable in the 130s over 70s. He has an active dry cough, appears fatigued, has bilateral coarse breath sounds with dependent rhonchi. Tachycardic regular rate and rhythm. His skin is flushed. Chest x-ray shows bilateral pneumonia compatible with Covid. Random glucose is 126. Troponin is 6.2. He is leukopenic with a white cell count of 4.2. Hemoglobin 15.8. Sed rate is 18. D-dimer is 814. Repeat nasal swab today is SARS Covid was positive. He is now admitted for Covid pneumonia with hypoxemia. - HOSPITAL COURSE Hospital Course: (1) Acute respiratory failure with hypoxia This was due to COVID-19 pneumonia. His oxygen requirements were high and he was admitted to the ICU. He did not need intubation. He was treated with Decadron and Remdesivir, Mucinex and Incentive Spirometry ordered. His D-dimer was noted to be elevated at greater than 800, thus we ordered empiric therapeutic Lovenox bid. Eventually his O2 needs decreased and he was transferred out of the ICU. On the day of discharge, he underwent an oximetry evaluation at rest and during walking. At rest his oxygen saturation was 87%. On 4 LO2 it increased to 90%. With walking his O2 saturation remained 90%. I am ordering home oxygen use set at 4 L continuously. (2) COVID-19 This was the cause of his acute respiratory failure with hypoxia. He received 5 days of Remdesivir and was on iv Decadron, Mucinex, Robitussin, supplemental O2, and vitamin supplements. He required HiFlow O2, and was in the ICU in Infection Isolation. He tried proning and could only tolerate it during his final 2-3 days and only for several hours. He was discharged when his O2 needs were less than 10L of oxygen, which can be supplied by oxygen companies. He was advised to quarantine for several more days (10 days from start of worse symptoms). (3) Hypertension Stable BP on his home meds (4) Morbid obesity with BMI of 45.0-49.9, adult He should work on weight control. - ALLERGIES Allergies/Adverse Reactions: Allergies Allergy/AdvReac Type Severity Reaction Status Date / Time No Known Drug Allergies Allergy Verified 07/25/21 21:32 - MEDICATIONS Home Medications: Ambulatory Orders Medication Instructions Recorded Confirmed Losartan [Cozaar] 50 mg PO DAILY 07/25/21 07/25/21 - PHYSICAL EXAM AT DISCHARGE General Appearance: positive: No acute distress, Alert Eyes Bilateral: positive: Normal inspection ENT: positive: No signs of dehydration Neck: positive: Nml inspection, Other (Obese and cannot eval JVP) Respiratory: positive: No respiratory distress (whileon O2 n.c.) Cardiovascular: positive: Regular rate & rhythm Abdomen: positive: Non-tender, Other (Obese with pannus) Skin: positive: Warm, Dry Extremities: positive: Non-tender, No pedal edema Neurologic/Psychiatric: positive: Oriented x3 (Non-focal) - LABS Result Diagrams: 07/27/21 04:48 07/31/21 06:53 - FOLLOW UP Follow Up: See PCP for routine follow-up. - TIME SPENT Time Spent in Discharge (Minutes): 45
[2021-08-01 14:19] VITALS: BP 128/81
== END 2021-08-01 14:35 | disposition home or self-care (01) | DRG 177 ==
LOC: ED 20:55 → MS2 23:05 → ICU 07-26 06:56
PROVIDERS: ADMIT Specialist; ATTEND Internal Medicine
PROC: XW033E5 Introduction of Remdesivir Anti-infective into Peripheral Vein, Percutaneous Approach, New Technology Group 5 (ICD-10-PCS; principal; 2021-07-26)
PROC: 3E0333Z Introduction of Anti-inflammatory into Peripheral Vein, Percutaneous Approach (ICD-10-PCS; 2021-07-26)
DX: U07.1 COVID-19 (principal); J96.01 Acute respiratory failure with hypoxia; J12.82 Pneumonia due to coronavirus disease 2019; Z68.42 Body mass index [BMI] 45.0-49.9, adult; F17.210 Nicotine dependence, cigarettes, uncomplicated; D72.819 Decreased white blood cell count, unspecified; I10 Essential (primary) hypertension; E66.01 Morbid (severe) obesity due to excess calories
CPT/HCPCS: 0202U; 36415; 71045; 80048; 80053; 82330; 82803; 83615; 83690; 84484; 85025; 85379; 85651; 86141; 87040; 87640; 93005; 94761; 96374; 99284; 99285; A9270; C9399; J1650